=== PATIENT | female | born 1945 | race Caucasian/White ===

== ENCOUNTER 2016-10-24 22:28 | Inpatient (IN) | payer MEDICARE, MEDICAID ==
--- NOTE | 2016-10-24 22:35 | EDM.PDOC ---
ED HPI GENERAL MEDICAL PROBLEM - General Chief Complaint: Genitourinary Problem Stated Complaint: [facility] Time Seen by Provider: 10/24/16 22:34 - History of Present Illness INITIAL COMMENTS - FREE TEXT/NARRATIVE: 71-year-old female presents emergency room with urinary frequency. Patient denies any significant pain however she has urinary frequency. This is started about for 5 hours prior to arrival. Patient denies any fevers or chills no nausea or vomiting. The patient is been doing okay not have any chest pain or chest pressure she has a history of paroxysmal atrial fibrillation. Patient has not had any recent medication changes. She is on oxygen 4 L per nasal cannula for her COPD she has a chronic cough this is not changed. - Related Data Allergies Allergy/AdvReac Type Severity Reaction Status Date / Time enoxaparin [Enoxaparin] Allergy Severe Hives Verified 10/24/16 22:41 silver sulfadiazine Allergy Severe Rash Verified 10/24/16 22:41 [From Silvadene] levothyroxine sodium Allergy Unknown Cannot Verified 10/24/16 22:41 Remember latex Allergy Rash Verified 10/24/16 22:41 levofloxacin [From Levaquin] Allergy Cannot Verified 10/24/16 22:41 Remember Home Meds: Home Meds Acetaminophen [Tylenol] 650 mg PO Q6H PRN 06/26/13 [History] Albuterol/Ipratropium [DuoNeb 3.0-0.5 MG/3 ML] 1 unit INH Q4HR PRN 06/26/13 [ History] Aspirin [Adult Low Dose Aspirin EC] 81 mg PO ASDIRECTED 06/26/13 [History] Budesonide/Formoterol [Symbicort 160-4.5 MCG] 2 puff IH BID 06/26/13 [History] Docusate Sodium [Colace] 200 mg PO BID 06/26/13 [History] Furosemide [Lasix] 40 mg PO BID 06/26/13 [History] Insulin Glarg,Human.Rec.Analog [Lantus] 12 unit SUBCUT BEDTIME 06/26/13 [History ] Levothyroxine Sodium [Synthroid] 25 mcg PO DAILY 06/26/13 [History] Lisinopril [Zestril] 10 mg PO DAILY 06/26/13 [History] Montelukast [Singulair] 10 mg PO BEDTIME 06/26/13 [History] Multivitamin [Multivitamins] 1 each PO DAILY 06/26/13 [History] Polyethylene Glycol 3350 [MiraLAX] 17 gr PO DAILY PRN 06/26/13 [History] Potassium Chloride 10 meq PO DAILY 06/26/13 [History] Simvastatin [Zocor] 20 mg PO BEDTIME 06/26/13 [History] SitaGLIPtin [Januvia] 100 mg PO DAILY 06/26/13 [History] Tiotropium [Spiriva Handihaler] 2 puff INH DAILY 06/26/13 [History] metFORMIN [Glucophage] 250 mg PO BIDM 06/26/13 [History] [place]-3/DHA/Epa/Fish Oil [[place]-3 Fish Oil 1,000 MG Sfgl] 1,000 mg PO BID #30 [Rx] Roflumilast [Daliresp] 250 mcg PO ASDIRECTED #30 07/03/13 [Rx] oxyCODONE HCl/Acetaminophen [Percocet 10-325 MG] 1 tab PO Q6H PRN #30 07/03/13 [ Rx] Carvedilol [Coreg] 6.25 mg PO BID #2 tablet 08/19/13 [Rx] guaiFENesin [Mucinex] 600 mg PO DAILY 10/24/16 [History] Past Medical History HEENT History: Reports: Impaired Vision Cardiovascular History: Reports: Other (See Below) Other Cardiovascular History: "abnormal EKG" patient is unsure of actual diagnosis. Respiratory History: Reports: COPD, Other (See Below) Other Respiratory History: at home Oxygen Endocrine/Metabolic History: Reports: Diabetes, Type II, Hypothyroidism Social & Family History - Family History Cardiac: Reports: Heart Failure Respiratory: Reports: Other (See Below) Other Respiratory Family Hisory: emphysema - Tobacco Use Smoking Status *Q: Former Smoker Years of Tobacco use: 30 Packs/Tins Daily: 1 Used Tobacco, but Quit: Yes Month Tobacco Last Used: 2008 Second Hand Smoke Exposure: No - Alcohol Use Days Per Week of Alcohol Use: 0 - Recreational Drug Use Recreational Drug Use: No ED ROS GENERAL - Review of Systems Review Of Systems: See Below Constitutional: Reports: No Symptoms HEENT: Reports: No Symptoms Respiratory: Reports: Shortness of Breath, Cough, Sputum, Other (She has a chronic productive cough this is unchanged) Cardiovascular: Denies: Chest Pain, Edema GI/Abdominal: Reports: No Symptoms : Reports: Frequency, Urgency Musculoskeletal: Reports: Other (She has multiple orthopedic pain issues) Skin: Reports: No Symptoms Neurological: Reports: No Symptoms Psychiatric: Reports: No Symptoms ED EXAM, RENAL/ - Physical Exam Exam: See Below Exam Limited By: No Limitations General Appearance: Alert, No Apparent Distress Head: Atraumatic, Normocephalic Neck: Normal Inspection, Supple, Non-Tender, Full Range of Motion. No: Lymphadenopathy (L), Lymphadenopathy (R) Respiratory/Chest: No Respiratory Distress, Lungs Clear, Decreased Breath Sounds Cardiovascular: Regular Rate, Rhythm, No Murmur, Other (Scant pitting edema noted) GI/Abdominal: Normal Bowel Sounds, Soft, Non-Tender Back Exam: Normal Inspection. No: CVA Tenderness (L), CVA Tenderness (R) Extremities: Normal Inspection, Other (Scant pitting edema) Neurological: Alert, Oriented, Normal Cognition, No Motor/Sensory Deficits Psychiatric: Normal Affect, Normal Mood Course - Vital Signs Last Recorded V/S: Last Vital Signs Temp 36.8 C 10/24/16 22:32 Pulse 117 H 10/24/16 22:32 Resp 20 10/24/16 22:32 BP 148/58 H 10/24/16 22:32 Pulse Ox 90 L 10/24/16 22:32 - Orders/Labs/Meds Orders: Active Orders 24 hr Category Date Time Status EKG Documentation Completion [RC] STAT Care 10/25/16 01:58 Active CBC WITH MANUAL DIFF [HEME] Stat Lab 10/24/16 22:44 Ordered COMPREHENSIVE METABOLIC PN,CMP [CHEM] Stat Lab 10/24/16 22:44 Ordered CULTURE URINE [RM] Stat Lab 10/25/16 00:44 Received URINALYSIS W/MICROSCOPIC [UA W/MICROSCOPIC] [URIN] Stat Lab 10/24/16 22:44 Uncollected Labs: Laboratory Tests 10/24/16 10/24/16 10/24/16 Range/Units 23:30 23:34 23:34 WBC 16.89 H (3.98-10.04) K/mm3 RBC 3.76 L (3.98-5.22) M/mm3 Hgb 11.5 (11.2-15.7) gm/L Hct 36.3 (34.1-44.9) % MCV 96.5 H (79.4-94.8) fl MCH 30.6 (25.6-32.2) pg MCHC 31.7 L (32.2-35.5) g/dl RDW Std Deviation 49.1 H (36.4-46.3) fL Plt Count 284 (182-369) K/mm3 MPV 10.2 (9.4-12.3) fl Neutrophils % (Manual) 81 H (40-60) % Band Neutrophils % 0 (0-10) % Lymphocytes % (Manual) 13 L (20-40) % Atypical Lymphs % 0 % Monocytes % (Manual) 5 (2-10) % Eosinophils % (Manual) 1 (0.7-5.8) % Basophils % (Manual) 0 L (0.1-1.2) Platelet Estimate Adequate Plt Morphology Comment Normal Microcytosis 1+ slight RBC Morph Comment Not Reportable Sodium 140 (136-145) mEq/L Potassium 4.8 (3.5-5.1) mEq/L Chloride 100 (98-107) mEq/L Carbon Dioxide 31 (21-32) mEq/L Anion Gap 13.8 (5-15) BUN 78 H (7-18) mg/dL Creatinine 2.0 H (0.55-1.02) mg/dL Est Cr Clr Drug Dosing 24.15 mL/min Estimated GFR (MDRD) 25 (>60) mL/min BUN/Creatinine Ratio 39.0 H (14-18) Glucose 116 H (83-115) mg/dL Calcium 10.5 H (8.5-10.1) mg/dL Total Bilirubin 0.5 (0.2-1.0) mg/dL AST 11 L (15-37) U/L ALT 12 L (14-59) U/L Alkaline Phosphatase 117 H (46-116) U/L Total Protein 9.2 H (6.4-8.2) g/dl Albumin 4.0 (3.4-5.0) g/dl Globulin 5.2 gm/dL Albumin/Globulin Ratio 0.8 L (1-2) Urine Color [place] H (Yellow) Urine Appearance Slt cloudy H (Clear) Urine pH 7.0 (5.0-8.0) Ur Specific [place] 1.015 (1.005-1.030) Urine Protein 2+ H (Negative) Urine Glucose (UA) Negative (Negative) Urine Ketones Negative (Negative) Urine Occult Blood 3+ H (Negative) Urine Nitrite Negative (Negative) Urine Bilirubin Negative (Negative) Urine Urobilinogen 0.2 (0.2-1.0) Ur Leukocyte Esterase 3+ H (Negative) Urine RBC >100 H (0-5) /hpf Urine WBC 75-100 H (0-5) /hpf Urine WBC Clumps Few (NOT SEEN) /hpf Ur Epithelial Cells 0-5 (0-5) /hpf Urine Bacteria Few (FEW) /hpf Urine Mucus Not seen (FEW) /hpf Meds: Medications Discontinued Medications Generic Name Dose Route Start Last Admin Trade Name Freq PRN Reason Stop Dose Admin Sodium Chloride 500 mls @ 999 mls/hr 10/25/16 00:23 10/25/16 00:41 Normal Saline IV 10/25/16 00:53 999 mls/hr .BOLUS ONE Administration - Re-Assessments/Exams Free Text/Narrative Re-Assessment/Exam: 10/25/16 02:34 Patient was evaluated in reviewing her creatinine is now 2.0 her BUNs 74 these are markedly elevated over the last couple years. A half ago her creatinine was 0.8 urinalysis has a fair amount of hematuria and it and it is somewhat suggestive of infectious process cultures obtained patient started on Rocephin. The patient has had a tachycardia however she has a history of intermittent atrial fibrillation EKG shows normal sinus rhythm however at times her pulse goes up to 120s. The patient is on lisinopril metformin and Lasix these will be held. Patient will be started on gentle fluid rehydration. Patient will be admitted for further treatment as her insulin requirements will probably change her blood pressure management may need to be adjusted. The patient lives by herself. Departure - Departure Time of Disposition: 02:00 Disposition: Admitted As Inpatient 66 Clinical Impression: Renal insufficiency, Dehydration, Tachycardia - Discharge Information Forms: ED Department Discharge - My Orders Last 24 Hours: My Active Orders 10/24/16 22:44 CBC WITH MANUAL DIFF [HEME] Stat COMPREHENSIVE METABOLIC PN,CMP [CHEM] Stat URINALYSIS W/MICROSCOPIC [UA W/MICROSCOPIC] [URIN] Stat 10/25/16 00:44 CULTURE URINE [RM] Stat 10/25/16 01:58 EKG Documentation Completion [RC] STAT - Assessment/Plan Last 24 Hours: My Active Orders 10/24/16 22:44 CBC WITH MANUAL DIFF [HEME] Stat COMPREHENSIVE METABOLIC PN,CMP [CHEM] Stat URINALYSIS W/MICROSCOPIC [UA W/MICROSCOPIC] [URIN] Stat 10/25/16 00:44 CULTURE URINE [RM] Stat 10/25/16 01:58 EKG Documentation Completion [RC] STAT
[2016-10-25] MEDS ORDERED: Sodium Chloride 0.9% 500 ML IV ONE (00:23)
[2016-10-25] MEDS ORDERED: cefTRIAXone 1 GM in Sodium Chloride 0.9% 100 ML IV ONE (02:19)
[2016-10-25] MEDS ORDERED: Albuterol/Ipratropium 3.0-0.5 MG/3 ML Neb Soln NEB PRN (03:53)
[2016-10-25] MEDS ORDERED: Albuterol 6.7 GM Inhaler INH PRN (03:54)
[2016-10-25] MEDS ORDERED: Insulin Aspart 100 Units/ML 3 ML Pen SUBCUT SCH (07:00)
[2016-10-25] MEDS ORDERED: Acetaminophen 325 MG Tab PO PRN ×2 (07:32→07:37)
[2016-10-25] MEDS ORDERED: LORazepam 2 MG/ML MDV IV PRN (07:32)
[2016-10-25] MEDS ORDERED: Acetaminophen/HYDROcodone 325-5 MG Tab PO PRN (07:32)
[2016-10-25] MEDS ORDERED: Promethazine 12.5 MG in Sodium Chloride 0.9% 50 ML IV PRN (07:32)
[2016-10-25] MEDS ORDERED: Ondansetron 4 MG/2 ML SDV IV PRN (07:32)
[2016-10-25] MEDS ORDERED: Morphine 2 MG/ML Syringe IVPUSH PRN (07:32)
[2016-10-25] MEDS ORDERED: Polyethylene Glycol 3350 Powder 17 GM Packet PO PRN ×2 (07:32→07:37)
[2016-10-25] MEDS ORDERED: Docusate Sodium 100 MG Cap PO PRN (07:32)
[2016-10-25] MEDS ORDERED: Bisacodyl 5 MG Tab PO PRN (07:32)
[2016-10-25] MEDS ORDERED: Acetaminophen/oxyCODONE 325-5 MG Tab PO PRN (07:37)
[2016-10-25] MEDS ORDERED: hydrALAZINE 20 MG/ML SDV IVPUSH PRN (07:42)
[2016-10-25] MEDS ORDERED: Metoprolol Tartrate 5 MG/5 ML SDV IVPUSH PRN (07:42)
[2016-10-25] MEDS ORDERED: 50% Dextrose in Water 50 ML Syringe IVPUSH PRN (07:45)
[2016-10-25] MEDS: Sodium Chloride 0.9% 1,000 ML IV SCH ×2 (07:51→18:06)
[2016-10-25] MEDS ORDERED: Levothyroxine 25 MCG Tab PO SCH (08:15)
[2016-10-25] MEDS: Insulin Aspart 100 Units/ML 3 ML Pen SUBCUT SCH ×2 (08:36→20:54)
[2016-10-25] MEDS ORDERED: oxyCODONE 5 MG Tab PO PRN (08:39)
[2016-10-25] MEDS ORDERED: Furosemide 40 MG Tab PO SCH (08:45)
[2016-10-25] MEDS: Tiotropium Inhaler 18 MCG Inhalation Powder Cap Kit of 5 INH SCH (08:45)
--- NOTE | 2016-10-25 08:53 | PCM.HP ---
<Dena Martinez - Last Filed: 10/25/16 09:12> H&P History of Present Illness - General Date of Service: 10/25/16 Admit Problem/Dx: Admission Diagnosis/Problem Admission Diagnosis/Problem Renal failure Urinary tract infection Source of Information: Patient History Limitations: Reports: No Limitations - History of Present Illness Onset of Symptoms: Reports: Sudden Symptom Onset Date: 10/24/16 Associated Symptoms: Reports: No Other Symptoms - Related Data Allergies/Adverse Reactions: Allergies Allergy/AdvReac Type Severity Reaction Status Date / Time enoxaparin [Enoxaparin] Allergy Mild Hives Verified 10/25/16 07:22 silver sulfadiazine Allergy Mild Rash Verified 10/25/16 07:22 [From Silvadene] levothyroxine sodium Allergy Unknown Cannot Verified 10/24/16 22:41 Remember latex Allergy Rash Verified 10/24/16 22:41 levofloxacin [From Levaquin] Allergy Cannot Verified 10/24/16 22:41 Remember Home Medications: Home Meds Acetaminophen [Tylenol] 650 mg PO Q6H PRN 06/26/13 [History] Albuterol/Ipratropium [DuoNeb 3.0-0.5 MG/3 ML] 1 unit INH Q4HR PRN 06/26/13 [ History] Aspirin [Adult Low Dose Aspirin EC] 81 mg PO ASDIRECTED 06/26/13 [History] Budesonide/Formoterol [Symbicort 160-4.5 MCG] 2 puff IH BID 06/26/13 [History] Docusate Sodium [Colace] 200 mg PO BID 06/26/13 [History] Furosemide [Lasix] 40 mg PO BID 06/26/13 [History] Insulin Glarg,Human.Rec.Analog [Lantus] 12 unit SUBCUT BEDTIME 06/26/13 [History ] Levothyroxine Sodium [Synthroid] 25 mcg PO DAILY 06/26/13 [History] Lisinopril [Zestril] 10 mg PO DAILY 06/26/13 [History] Montelukast [Singulair] 10 mg PO BEDTIME 06/26/13 [History] Multivitamin [Multivitamins] 1 each PO DAILY 06/26/13 [History] Polyethylene Glycol 3350 [MiraLAX] 17 gr PO DAILY PRN 06/26/13 [History] Potassium Chloride 10 meq PO DAILY 06/26/13 [History] Simvastatin [Zocor] 20 mg PO BEDTIME 06/26/13 [History] SitaGLIPtin [Januvia] 100 mg PO DAILY 06/26/13 [History] Tiotropium [Spiriva Handihaler] 2 puff INH DAILY 06/26/13 [History] metFORMIN [Glucophage] 250 mg PO BIDM 06/26/13 [History] [place]-3/DHA/Epa/Fish Oil [[place]-3 Fish Oil 1,000 MG Sfgl] 1,000 mg PO BID #30 [Rx] Roflumilast [Daliresp] 250 mcg PO ASDIRECTED #30 07/03/13 [Rx] oxyCODONE HCl/Acetaminophen [Percocet 10-325 MG] 1 tab PO Q6H PRN #30 07/03/13 [ Rx] Carvedilol [Coreg] 6.25 mg PO BID #2 tablet 08/19/13 [Rx] guaiFENesin [Mucinex] 600 mg PO DAILY 10/24/16 [History] Albuterol [IJD: Ventolin HFA] 2 puff INH .TWICE DAILY 10/25/16 [History] Levothyroxine Sodium [Synthroid] 25 mcg PO DAILY 10/25/16 [History] Past Medical History HEENT History: Reports: Impaired Vision Cardiovascular History: Reports: Other (See Below) Other Cardiovascular History: "abnormal EKG" patient is unsure of actual diagnosis. Respiratory History: Reports: COPD, Other (See Below) Other Respiratory History: at home Oxygen : 3 Para: 3 Endocrine/Metabolic History: Reports: Diabetes, Type II, Hypothyroidism - Past Surgical History Female Surgical History: Reports: Tubal Ligation (1965) Social & Family History - Family History Cardiac: Reports: Heart Failure Respiratory: Reports: Other (See Below) Other Respiratory Family Hisory: emphysema Endocrine/Metabolic: Reports: Diabetes, type II - Tobacco Use Smoking Status *Q: Former Smoker Years of Tobacco use: 30 Packs/Tins Daily: 1 Used Tobacco, but Quit: Yes Month Tobacco Last Used: 2008 Second Hand Smoke Exposure: No - Caffeine Use Caffeine Use: Reports: Coffee - Alcohol Use Days Per Week of Alcohol Use: 0 - Recreational Drug Use Recreational Drug Use: No H&P Review of Systems - Review of Systems: General: Reports: No Symptoms HEENT: Reports: No Symptoms Pulmonary: Reports: Cough, Sputum Cardiovascular: Reports: No Symptoms Gastrointestinal: Reports: No Symptoms Genitourinary: Reports: Frequency, Urgency Musculoskeletal: Reports: No Symptoms Neurological: Reports: No Symptoms Hematologic/Lymphatic: Reports: Easy Bruising Exam - Vital Signs Vital Signs: Last Vital Signs Temp 97.0 F 10/25/16 07:28 Pulse 91 10/25/16 07:28 Resp 20 10/25/16 07:27 BP 124/47 L 10/25/16 07:27 Pulse Ox 91 L 10/25/16 07:33 Weight: 72.575 kg - Exam Quality Assessment: Supplemental Oxygen General: Alert, Oriented, Cooperative HEENT: Conjunctiva Clear, EOMI, Hearing Intact, Pupils Equal, Pupils Reactive Neck: Supple, Trachea Midline Lungs: Decreased Breath Sounds (COPD related) Cardiovascular: Other (Inadequate assessment) GI/Abdominal Exam: Soft, Non-Tender, No Organomegaly, No Distention (Female) Exam: Deferred Rectal (Female) Exam: Deferred Back Exam: Normal Inspection, Full Range of Motion Extremities: Normal Inspection, Normal Range of Motion, Non-Tender, No Pedal Edema Skin: Warm, Dry, Intact Neurological: Cranial Nerves Intact Neuro Extensive - Mental Status: Alert, Oriented x3, Normal Mood/Affect, Normal Cognition, Memory Intact Neuro Extensive - Motor, Sensory, Reflexes: CN II-XII Intact Psychiatric: Alert, Normal Affect, Normal Mood - Patient Data Lab Results Last 24 hrs: Laboratory Results - last 24 hr 10/25/16 10/25/16 Range/Units 06:10 07:38 Sodium 140 (136-145) mEq/L Potassium 4.4 (3.5-5.1) mEq/L Chloride 102 (98-107) mEq/L Carbon Dioxide 29 (21-32) mEq/L Anion Gap 13.4 (5-15) BUN 68 H (7-18) mg/dL Creatinine 1.6 H (0.55-1.02) mg/dL Est Cr Clr Drug Dosing 30.19 mL/min Estimated GFR (MDRD) 32 (>60) mL/min BUN/Creatinine Ratio 42.5 H (14-18) Glucose 125 H (83-115) mg/dL POC Glucose 119 H (83-110) mg/dL Calcium 9.2 (8.5-10.1) mg/dL Result Diagrams: 10/24/16 23:34 10/25/16 06:10 *Q Meaningful Use (ADM) - VTE *Q VTE Criteria *Q: - Stroke *Q Stroke Criteria *Q: - AMI *Q AMI Criteria *Q: - Problem List (1) Dehydration SNOMED Code(s): 62595532 ICD Code: E86.0 - DEHYDRATION Status: Acute Current Visit: Yes (2) Renal insufficiency SNOMED Code(s): 721561131 ICD Code: N28.9 - DISORDER OF KIDNEY AND URETER, UNSPECIFIED Status: Acute Current Visit: Yes Problem List Initiated/Reviewed/Updated: Yes Orders Last 24hrs: Active Orders 24 hr Category Date Time Status Patient Status [ADT] Stat ADT 10/25/16 02:38 Active Accu Check [Blood Glucose Check, Bedside] [RC] Care 10/25/16 07:00 Active QIDACANDBED Antiembolic Devices [RC] PER UNIT ROUTINE Care 10/25/16 07:34 Active Blood Glucose Check, Bedside [RC] ASDIRECTED Care 10/25/16 07:45 Active Communication Order [RC] ROUTINE Care 10/25/16 03:49 Active Height and Weight [RC] DAILY Care 10/25/16 07:32 Active Intake and Output [RC] QSHIFT Care 10/25/16 07:33 Active Oxygen Therapy Adult [Oxygen Therapy] [RC] ASDIRECTED Care 10/25/16 03:47 Active Oxygen Therapy [RC] PRN Care 10/25/16 07:33 Active Pulse Oximetry [RC] CONTINUOUS Care 10/25/16 07:33 Active RT Aerosol Therapy [RC] ASDIRECTED Care 10/25/16 03:54 Active RT Post Treatment Assessment [RC] Click to Edit Care 10/25/16 03:56 Active RT Pre-Treatment Assessment [RC] Click to Edit Care 10/25/16 03:57 Active Up With Assistance [RC] ASDIRECTED Care 10/25/16 07:32 Active Up ad Mary Ann [RC] ASDIRECTED Care 10/25/16 03:43 Active Up to Chair [RC] ASDIRECTED Care 10/25/16 07:32 Active VTE/DVT Education [RC] PER UNIT ROUTINE Care 10/25/16 07:33 Active Vital Signs [RC] Q4H Care 10/25/16 07:33 Active Consult to Case Management [CONS] Routine Cons 10/25/16 07:35 Active Consult to Machine Former [CONS] Routine Cons 10/25/16 07:35 Active Consult to Spiritual Care [CONS] Routine Cons 10/25/16 07:35 Active OT Evaluation and Treatment [CONS] Routine Cons 10/25/16 07:35 Active PT Evaluation and Treatment [CONS] Routine Cons 10/25/16 07:35 Active Respiratory Care Assess and Treatment [CONS] Routine Cons 10/25/16 07:35 Active ADA Diabetic [[place] [employer] Diet] [DIET Diet 10/25/16 Breakfast Active ] ADA Diabetic [[place] [employer] Diet] [DIET Diet 10/25/16 Breakfast Active ] CBC WITH AUTO DIFF [HEME] AM Lab 10/26/16 05:11 Ordered CBC WITH AUTO DIFF [HEME] AM Lab 10/27/16 05:11 Ordered CBC WITH AUTO DIFF [HEME] AM Lab 10/28/16 05:11 Ordered CBC WITH AUTO DIFF [HEME] AM Lab 10/29/16 05:11 Ordered CBC WITH AUTO DIFF [HEME] AM Lab 10/30/16 05:11 Ordered MAGNESIUM [CHEM] AM Lab 10/26/16 05:11 Ordered MAGNESIUM [CHEM] AM Lab 10/27/16 05:11 Ordered MAGNESIUM [CHEM] AM Lab 10/28/16 05:11 Ordered MAGNESIUM [CHEM] AM Lab 10/29/16 05:11 Ordered MAGNESIUM [CHEM] AM Lab 10/30/16 05:11 Ordered Acetaminophen [Tylenol] Med 10/25/16 07:32 Active 650 mg PO Q4H PRN Acetaminophen/HYDROcodone [[place] 325-5 MG] Med 10/25/16 07:32 Active 1 tab PO Q4H PRN Acetaminophen/oxyCODONE [Percocet 325-5 MG] Med 10/25/16 07:37 Active 1 tab PO Q6H PRN Albuterol [Proventil HFA] Med 10/25/16 09:00 Active 0 gm INH BID Albuterol [Proventil HFA] Med 10/25/16 03:54 Active 0 gm INH Q4H PRN Albuterol/Ipratropium [DuoNeb 3.0-0.5 MG/3 ML] Med 10/25/16 03:53 Active 3 ml NEB Q4HRRT PRN Aspirin [Halfprin] Med 10/26/16 09:00 Active 81 mg PO Q48H Bisacodyl [Dulcolax] Med 10/25/16 07:32 Active 5 mg PO DAILY PRN Carvedilol [Coreg] Med 10/25/16 09:00 Active 6.25 mg PO BID Dextrose 50% in Water Med 10/25/16 07:45 Active 50 ml IVPUSH ASDIRECTED PRN Docusate Sodium [Colace] Med 10/25/16 07:32 Active 100 mg PO BID PRN Docusate Sodium [Colace] Med 10/25/16 09:00 Active 200 mg PO BID Docusate Sodium/Sennosides [Senna Plus] Med 10/25/16 07:32 Active 1 tab PO BID PRN Fish Oil/[place]-3 Fatty Acids [Fish Oil] Med 10/25/16 09:00 Active 1 gm PO BID Furosemide [Lasix] Med 10/25/16 14:00 Active 20 mg PO DAILY@1400 Furosemide [Lasix] Med 10/25/16 08:45 Active 40 mg PO DAILY@0600 Insulin Aspart [NovoLOG] Med 10/25/16 08:00 Active See Protocol SUBCUT BID@0700,2100 Insulin Detemir [Levemir] Med 10/25/16 21:00 Active 6 unit SUBCUT BID LORazepam [Ativan] Med 10/25/16 07:32 Active 1 mg IV Q6H PRN Levothyroxine Med 10/25/16 08:15 Active 25 mcg PO ACBREAKFAST Lisinopril [Prinivil] Med 10/25/16 09:00 Active 10 mg PO DAILY Magnesium Rep Pharmacy to Dose [Pharmacy to Dose - Med 10/25/16 07:45 Active Magnesium Replacement] 0 dose .XX ASDIRECTED PRN Metoprolol Tartrate [Lopressor] Med 10/25/16 07:42 Active 5 mg IVPUSH Q4H PRN Mometasone/Formoterol [Dulera 200-5 MCG] Med 10/25/16 09:00 Active 2 puff IH BID Montelukast [Singulair] Med 10/25/16 21:00 Active 10 mg PO BEDTIME Morphine Med 10/25/16 07:32 Active 1 mg IVPUSH Q4H PRN Multivitamins,Therapeutic [Thera] Med 10/25/16 09:00 Active 1 each PO DAILY Ondansetron [Zofran] Med 10/25/16 07:32 Active 4 mg IV Q6H PRN Patient's Own Medication [Ptom] Med 10/26/16 09:00 Active 0 each PO Q48H Pneumococcal 13-Valent Conjug [Prevnar 13] Med 10/25/16 11:40 Once 0.5 ml IM .ONCE ONE Polyethylene Glycol 3350 [MiraLAX] Med 10/25/16 07:37 Active 17 gm PO DAILY PRN Potassium Chloride [Klor-Con 10] Med 10/25/16 09:00 Active 10 meq PO DAILY Potassium Rep Pharmacy to Dose [Pharmacy to Dose - Med 10/25/16 07:45 Active Potassium Replacement] 0 dose .XX ASDIRECTED PRN Promethazine [Phenergan] 12.5 mg Med 10/25/16 07:32 Active Sodium Chloride 0.9% [Normal Saline] 50 ml IV Q6H Simvastatin [Zocor] Med 10/25/16 21:00 Active 20 mg PO BEDTIME SitaGLIPtin [Januvia] Med 10/25/16 09:00 Active 100 mg PO DAILY Sodium Chloride 0.9% [Normal Saline] 1,000 ml Med 10/25/16 03:45 Active IV ASDIRECTED Temazepam [Restoril] Med 10/25/16 21:00 Active 7.5 mg PO BEDTIME PRN Tiotropium [Spiriva HandiHaler] Med 10/25/16 09:00 Active 18 mcg INH DAILY cefTRIAXone [Rocephin] 1 gm Med 10/26/16 03:00 Active Sodium Chloride 0.9% [Normal Saline] 100 ml IV Q24H guaiFENesin [Mucinex] Med 10/25/16 09:00 Active 600 mg PO DAILY hydrALAZINE [Apresoline] Med 10/25/16 07:42 Active 20 mg IVPUSH Q4H PRN metFORMIN [Glucophage] Med 10/25/16 17:00 Active 250 mg PO BIDM oxyCODONE Med 10/25/16 08:39 Active 5 mg PO Q6H PRN Sequential Compression Device [OM.PC] Per Unit Routine Oth 10/25/16 07:33 Ordered Code Status [Resuscitation Status] Routine Resus Stat 10/25/16 03:42 Ordered Medication Orders Acetaminophen (Tylenol) 650 mg PO Q4H PRN PRN Reason: Pain (Mild 1-3)/fever Hydrocodone Bitart/Acetaminophen ([place] 325-5 Mg) 1 tab PO Q4H PRN PRN Reason: Pain (moderate 4-6) Albuterol (Proventil Hfa) 0 gm INH Q4H PRN PRN Reason: Shortness of Breath Albuterol (Proventil Hfa) 0 gm INH BID [facility] Albuterol/Ipratropium (Duoneb 3.0-0.5 Mg/3 Ml) 3 ml NEB Q4HRRT PRN PRN Reason: Shortness of Breath Aspirin (Halfprin) 81 mg PO Q48H [facility] Bisacodyl (Dulcolax) 5 mg PO DAILY PRN PRN Reason: Constipation Carvedilol (Coreg) 6.25 mg PO BID [facility] Dextrose/Water (Dextrose 50% In Water) 50 ml IVPUSH ASDIRECTED PRN PRN Reason: Hypoglycemia Docusate Sodium (Colace) 100 mg PO BID PRN PRN Reason: Constipation Docusate Sodium (Colace) 200 mg PO BID [facility] Fish Oil (Fish Oil) 1 gm PO BID [facility] Furosemide (Lasix) 40 mg PO DAILY@0600 [facility] Furosemide (Lasix) 20 mg PO DAILY@1400 [facility] Guaifenesin (Mucinex) 600 mg PO DAILY [facility] Hydralazine HCl (Apresoline) 20 mg IVPUSH Q4H PRN PRN Reason: Hypertension Sodium Chloride (Normal Saline) 1,000 mls @ 100 mls/hr IV ASDIRECTED [facility] Last Admin: 10/25/16 07:51 Dose: 100 mls/hr Promethazine HCl 12.5 mg/ (Sodium Chloride) 50.5 mls @ 100 mls/hr IV Q6H PRN PRN Reason: Nausea/Vomiting Ceftriaxone Sodium 1 gm/ (Sodium Chloride) 100 mls @ 200 mls/hr IV Q24H [facility] Insulin Aspart (Novolog) 0 unit SUBCUT BID@0700,2100 [facility] PRN Reason: Protocol Last Admin: 10/25/16 08:36 Dose: Not Given Insulin Detemir (Levemir) 6 unit SUBCUT BID [facility] Levothyroxine Sodium (Levothyroxine) 25 mcg PO ACBREAKFAST [facility] Lisinopril (Prinivil) 10 mg PO DAILY [facility] Lorazepam (Ativan) 1 mg IV Q6H PRN PRN Reason: Anxiety Magnesium Sulfate (Pharmacy To Dose - Magnesium Replacement) 0 dose .XX ASDIRECTED PRN PRN Reason: RX TO WATCH MAG LEVELS Metformin HCl (Glucophage) 250 mg PO BIDM [facility] Metoprolol Tartrate (Lopressor) 5 mg IVPUSH Q4H PRN PRN Reason: Tachycardia Mometasone Furoate/Formoterol Fumar (Dulera 200-5 Mcg) 2 puff IH BID [facility] Montelukast Sodium (Singulair) 10 mg PO BEDTIME [facility] Morphine Sulfate (Morphine) 1 mg IVPUSH Q4H PRN PRN Reason: Pain (severe 7-10) Stop: 10/26/16 07:33 Multivitamins (Thera) 1 each PO DAILY [facility] Ondansetron HCl (Zofran) 4 mg IV Q6H PRN PRN Reason: Nausea/Vomiting Oxycodone HCl (Oxycodone) 5 mg PO Q6H PRN PRN Reason: PAIN Oxycodone/Acetaminophen (Percocet 325-5 Mg) 1 tab PO Q6H PRN PRN Reason: Pain Roflumilast 250 Mcg 0 each PO Q48H [facility] Pneumococcal 13-Valent Conj Vacc (Prevnar 13) 0.5 ml IM .ONCE ONE Stop: 10/25/16 11:41 Polyethylene Glycol (Miralax) 17 gm PO DAILY PRN PRN Reason: Constipation Potassium Chloride (Klor-Con 10) 10 meq PO DAILY [facility] Potassium Chloride (Pharmacy To Dose - Potassium Replacement) 0 dose .XX ASDIRECTED PRN PRN Reason: RX TO WATCH K LEVELS Senna/Docusate Sodium (Senna Plus) 1 tab PO BID PRN PRN Reason: Constipation Simvastatin (Zocor) 20 mg PO BEDTIME [facility] Sitagliptin Phosphate (Januvia) 100 mg PO DAILY [facility] Temazepam (Restoril) 7.5 mg PO BEDTIME PRN PRN Reason: Sleep Tiotropium [place] (Spiriva Handihaler) 18 mcg INH DAILY [facility] Assessment/Plan Comment:: Assessment: Patient is a 71 yo female that presented to ER last night, 10/24/16, with urinary difficulties. The patient reports that she had increased urgency and frequency, but was unable to void completely. Patient does not report any CVA tenderness, fever, chills or pain with urination. The patient has a history of COPD, diabetes, chronic kidney disease and hypothyroid. Labs revealed a possible urinary tract infection. Ceftriaxone was started this morning at 0219. On physical examination the patient reports no acute distress and reports that her symptoms have resolved and she is back to her baseline. Acute illnesses: UTI Chronic illnesses: COPD Chronic kidney disease Diabetes Hypothyroid Plan: Maintain supplemental oxygen Culture urine to isolate source of infection Adjust antibiotic treatment if needed Monitor blood sugars during stay Monitor kidneys and possibly adjust medications Maintain treatment of chronic illnesses <Laura Jackson - Last Filed: 10/25/16 18:06> H&P History of Present Illness - General Admit Problem/Dx: Admission Diagnosis/Problem Admission Diagnosis/Problem Renal failure Source of Information: Patient, Old Records, Provider, RN Notes Reviewed History Limitations: Reports: No Limitations - History of Present Illness Initial Comments - Free Text/Narative: This is a 71-year-old elderly white female with past medical history of impaired vision, history of paroxysmal atrial fibrillation, Advanced COPD, chronic respiratory failure on 4 L nasal cannula, hypothyroidism, and type 2 diabetes, who presents to the emergency department with complaints. She complains of urinary urgency and frequency that started about 5:00 PM yesterday evening. She denies any urinary or burning sensation. She denies any systemic symptoms. Patient denies any history of complaints. No history of urinary incontinence or overactive bladder. She had 3 children--all vaginal in delivery. Her initial workup in the emergency department shows a CBC remarkable for WBC of 16.89, RBC of 3.76, MCV of 96.5, neutrophils of 81% and lymphocytes of 13%. Her chemistry is remarkable for BUN of 78, creatinine of 2, glucose of 116, calcium of 10.5, AST of 11, ALT of 12, alkaline phosphatase of 117, and total protein of 9.2. UA is positive for urinary tract infection. Patient's was admitted early this morning for treatment of urinary tract infection and possible overactive bladder. She is full code. H&P Review of Systems - Review of Systems: Review Of Systems: See Below General: Denies: Fever, Chills, Malaise, Weakness, Fatigue, Night Sweats, Diaphoresis HEENT: Reports: No Symptoms Pulmonary: Reports: Shortness of Breath, Cough, Sputum Cardiovascular: Denies: Chest Pain, Palpitations Gastrointestinal: Denies: Abdominal Pain, Nausea, Vomiting Genitourinary: Reports: Frequency, Urgency Musculoskeletal: Reports: Joint Pain Skin: Denies: Cyanosis, Bruising, Pruritis, Erythema Psychiatric: Denies: Confusion, Depression, Anxiety, Suicidal Ideation, Homicidal Ideation, Hallucinations (Auditory) Neurological: Denies: Confusion, Weakness, Gait Disturbance Hematologic/Lymphatic: Reports: No Symptoms Immunologic: Reports: No Symptoms Exam - Exam Exam: See Below - Vital Signs Vital Signs: Last Vital Signs Temp 36.6 C 10/25/16 16:13 Pulse 105 H 10/25/16 16:13 Resp 16 10/25/16 16:13 BP 122/63 10/25/16 16:13 Pulse Ox 96 10/25/16 16:13 - Exam Quality Assessment: Supplemental Oxygen General: Alert, Oriented, Cooperative, Mild Distress HEENT: Conjunctiva Clear, EOMI, Hearing Intact, Mucosa Moist & [place], Nares Patent, Normal Nasal Septum, Posterior Pharynx Clear, Pupils Equal, Pupils Reactive Neck: Supple, Trachea Midline, Full Range of Motion. No: JVD Lungs: Normal Respiratory Effort, Decreased Breath Sounds GI/Abdominal Exam: Normal Bowel Sounds, Soft, Non-Tender, No Organomegaly, No Distention, No Abnormal Bruit, No Mass. No: Guarding (Female) Exam: Other (negative for suprapubic tenderness) Rectal (Female) Exam: Deferred Back Exam: Normal Inspection, Decreased Range of Motion. No: CVA Tenderness (L) , CVA Tenderness (R) Extremities: Normal Inspection, Normal Range of Motion, Non-Tender, No Pedal Edema, Normal Capillary Refill Peripheral Pulses: 2+: Posterior Tibial (L), Posterior Tibial (R), Dorsalis Pedis (L), Dorsalis Pedis (R) Skin: Warm, Dry, Intact Neuro Extensive - Mental Status: Oriented x3, Normal Cognition, Memory Intact Neuro Extensive - Motor, Sensory, Reflexes: CN II-XII Intact (grossly intact) Psychiatric: Alert, Normal Affect, Normal Mood - Patient Data Lab Results Last 24 hrs: Laboratory Results - last 24 hr 10/25/16 10/25/16 10/25/16 Range/Units 06:10 07:38 10:51 Sodium 140 (136-145) mEq/L Potassium 4.4 (3.5-5.1) mEq/L Chloride 102 (98-107) mEq/L Carbon Dioxide 29 (21-32) mEq/L Anion Gap 13.4 (5-15) BUN 68 H (7-18) mg/dL Creatinine 1.6 H (0.55-1.02) mg/dL Est Cr Clr Drug Dosing 30.19 mL/min Estimated GFR (MDRD) 32 (>60) mL/min BUN/Creatinine Ratio 42.5 H (14-18) Glucose 125 H (83-115) mg/dL POC Glucose 119 H 153 H (83-110) mg/dL Calcium 9.2 (8.5-10.1) mg/dL 10/25/16 Range/Units 17:05 Sodium (136-145) mEq/L Potassium (3.5-5.1) mEq/L Chloride (98-107) mEq/L Carbon Dioxide (21-32) mEq/L Anion Gap (5-15) BUN (7-18) mg/dL Creatinine (0.55-1.02) mg/dL Est Cr Clr Drug Dosing mL/min Estimated GFR (MDRD) (>60) mL/min BUN/Creatinine Ratio (14-18) Glucose (83-115) mg/dL POC Glucose 120 H (83-110) mg/dL Calcium (8.5-10.1) mg/dL Result Diagrams: 10/24/16 23:34 10/25/16 06:10 *Q Meaningful Use (ADM) - VTE *Q VTE Criteria *Q: - Stroke *Q Stroke Criteria *Q: - AMI *Q AMI Criteria *Q: Problem List Initiated/Reviewed/Updated: Yes Orders Last 24hrs: Active Orders 24 hr Category Date Time Status Patient Status [ADT] Stat ADT 10/25/16 02:38 Active Accu Check [Blood Glucose Check, Bedside] [] Care 10/25/16 07:00 Active QIDACANDBED Antiembolic Devices [RC] DAILY Care 10/25/16 07:34 Active Height and Weight [RC] 04 Care 10/25/16 07:32 Active Intake and Output [RC] 04,16 Care 10/25/16 07:33 Active Oxygen Therapy [RC] PRN Care 10/25/16 07:33 Active Pulse Oximetry [RC] CONTINUOUS Care 10/25/16 07:33 Active RT Aerosol Therapy [RC] ASDIRECTED Care 10/25/16 03:54 Active RT Post Treatment Assessment [RC] Click to Edit Care 10/25/16 03:56 Active RT Pre-Treatment Assessment [RC] Click to Edit Care 10/25/16 03:57 Active Up With Assistance [RC] ASDIRECTED Care 10/25/16 07:32 Active Up ad Mary Ann [RC] ASDIRECTED Care 10/25/16 03:43 Active Up to Chair [RC] ASDIRECTED Care 10/25/16 07:32 Active VTE/DVT Education [RC] DAILY Care 10/25/16 07:33 Active Vital Signs [RC] Q4HR Care 10/25/16 07:33 Active Consult to Case Management [CONS] Routine Cons 10/25/16 07:35 Active Consult to Machine Former [CONS] Routine Cons 10/25/16 07:35 Active Consult to Spiritual Care [CONS] Routine Cons 10/25/16 07:35 Active OT Evaluation and Treatment [CONS] Routine Cons 10/25/16 07:35 Active PT Evaluation and Treatment [CONS] Routine Cons 10/25/16 07:35 Active Respiratory Care Assess and Treatment [CONS] Routine Cons 10/25/16 07:35 Active ADA Diabetic [[place] [employer] Diet] [DIET Diet 10/25/16 Breakfast Active ] ADA Diabetic [[place] [employer] Diet] [DIET Diet 10/25/16 Breakfast Active ] CBC WITH AUTO DIFF [HEME] AM Lab 10/26/16 05:11 Ordered CBC WITH AUTO DIFF [HEME] AM Lab 10/27/16 05:11 Ordered CBC WITH AUTO DIFF [HEME] AM Lab 10/28/16 05:11 Ordered CBC WITH AUTO DIFF [HEME] AM Lab 10/29/16 05:11 Ordered CBC WITH AUTO DIFF [HEME] AM Lab 10/30/16 05:11 Ordered MAGNESIUM [CHEM] AM Lab 10/26/16 05:11 Ordered MAGNESIUM [CHEM] AM Lab 10/27/16 05:11 Ordered MAGNESIUM [CHEM] AM Lab 10/28/16 05:11 Ordered MAGNESIUM [CHEM] AM Lab 10/29/16 05:11 Ordered MAGNESIUM [CHEM] AM Lab 10/30/16 05:11 Ordered Acetaminophen [Tylenol] Med 10/25/16 07:32 Active 650 mg PO Q4H PRN Acetaminophen/HYDROcodone [[place] 325-5 MG] Med 10/25/16 07:32 Active 1 tab PO Q4H PRN Acetaminophen/oxyCODONE [Percocet 325-5 MG] Med 10/25/16 07:37 Active 1 tab PO Q6H PRN Albuterol/Ipratropium [DuoNeb 3.0-0.5 MG/3 ML] Med 10/25/16 03:53 Active 3 ml NEB Q4HRRT PRN Aspirin [Halfprin] Med 10/26/16 09:00 Active 81 mg PO Q48H Bisacodyl [Dulcolax] Med 10/25/16 07:32 Active 5 mg PO DAILY PRN Carvedilol [Coreg] Med 10/25/16 09:00 Active 6.25 mg PO BID Dextrose 50% in Water Med 10/25/16 07:45 Active 50 ml IVPUSH ASDIRECTED PRN Docusate Sodium [Colace] Med 10/25/16 07:32 Active 100 mg PO BID PRN Docusate Sodium [Colace] Med 10/25/16 09:00 Active 200 mg PO BID Docusate Sodium/Sennosides [Senna Plus] Med 10/25/16 07:32 Active 1 tab PO BID PRN Fish Oil/[place]-3 Fatty Acids [Fish Oil] Med 10/25/16 09:00 Active 1 gm PO BID Insulin Aspart [NovoLOG] Med 10/25/16 08:00 Active See Protocol SUBCUT BID@0700,2100 Insulin Detemir [Levemir] Med 10/25/16 21:00 Active 6 unit SUBCUT BID LORazepam [Ativan] Med 10/25/16 07:32 Active 1 mg IV Q6H PRN Lisinopril [Prinivil] Med 10/25/16 09:00 Active 10 mg PO DAILY Magnesium Rep Pharmacy to Dose [Pharmacy to Dose - Med 10/25/16 07:45 Active Magnesium Replacement] 0 dose .XX ASDIRECTED PRN Metoprolol Tartrate [Lopressor] Med 10/25/16 07:42 Active 5 mg IVPUSH Q4H PRN Montelukast [Singulair] Med 10/25/16 21:00 Active 10 mg PO BEDTIME Morphine Med 10/25/16 07:32 Active 1 mg IVPUSH Q4H PRN Multivitamins,Therapeutic [Thera] Med 10/25/16 09:00 Active 1 each PO DAILY Ondansetron [Zofran] Med 10/25/16 07:32 Active 4 mg IV Q6H PRN Patient's Own Medication [Ptom] Med 10/25/16 09:00 Active 0 each INH BID Patient's Own Medication [Ptom] Med 10/25/16 09:05 Active 0 each INH Q4H PRN Patient's Own Medication [Ptom] Med 10/25/16 09:15 Active 0 each PO ACBREAKFAST Patient's Own Medication [Ptom] Med 10/26/16 09:00 Active 0 each PO Q48H Polyethylene Glycol 3350 [MiraLAX] Med 10/25/16 07:37 Active 17 gm PO DAILY PRN Potassium Chloride [Klor-Con 10] Med 10/25/16 09:00 Active 10 meq PO DAILY Potassium Rep Pharmacy to Dose [Pharmacy to Dose - Med 10/25/16 07:45 Active Potassium Replacement] 0 dose .XX ASDIRECTED PRN Promethazine [Phenergan] 12.5 mg Med 10/25/16 07:32 Active Sodium Chloride 0.9% [Normal Saline] 50 ml IV Q6H Simvastatin [Zocor] Med 10/25/16 21:00 Active 20 mg PO BEDTIME SitaGLIPtin [Januvia] Med 10/25/16 09:00 Active 100 mg PO DAILY Sodium Chloride 0.9% [Normal Saline] 1,000 ml Med 10/25/16 03:45 Active IV ASDIRECTED Temazepam [Restoril] Med 10/25/16 21:00 Active 7.5 mg PO BEDTIME PRN Tiotropium [Spiriva HandiHaler] Med 10/25/16 09:00 Active 18 mcg INH DAILY cefTRIAXone [Rocephin] 1 gm Med 10/26/16 03:00 Active Sodium Chloride 0.9% [Normal Saline] 100 ml IV Q24H guaiFENesin [Mucinex] Med 10/25/16 09:00 Active 600 mg PO DAILY hydrALAZINE [Apresoline] Med 10/25/16 07:42 Active 20 mg IVPUSH Q4H PRN metFORMIN [Glucophage] Med 10/25/16 17:00 Active 250 mg PO BIDM oxyCODONE Med 10/25/16 08:39 Active 5 mg PO Q6H PRN Sequential Compression Device [OM.PC] Per Unit Routine Oth 10/25/16 07:33 Ordered Code Status [Resuscitation Status] Routine Resus Stat 10/25/16 03:42 Ordered Medication Orders Acetaminophen (Tylenol) 650 mg PO Q4H PRN PRN Reason: Pain (Mild 1-3)/fever Hydrocodone Bitart/Acetaminophen ([place] 325-5 Mg) 1 tab PO Q4H PRN PRN Reason: Pain (moderate 4-6) Albuterol/Ipratropium (Duoneb 3.0-0.5 Mg/3 Ml) 3 ml NEB Q4HRRT PRN PRN Reason: Shortness of Breath Aspirin (Halfprin) 81 mg PO Q48H [facility] Bisacodyl (Dulcolax) 5 mg PO DAILY PRN PRN Reason: Constipation Carvedilol (Coreg) 6.25 mg PO BID [facility] Last Admin: 10/25/16 09:01 Dose: 6.25 mg Dextrose/Water (Dextrose 50% In Water) 50 ml IVPUSH ASDIRECTED PRN PRN Reason: Hypoglycemia Docusate Sodium (Colace) 100 mg PO BID PRN PRN Reason: Constipation Docusate Sodium (Colace) 200 mg PO BID [facility] Last Admin: 10/25/16 09:08 Dose: 200 mg Fish Oil (Fish Oil) 1 gm PO BID [facility] Last Admin: 10/25/16 09:07 Dose: 1 gm Guaifenesin (Mucinex) 600 mg PO DAILY [facility] Last Admin: 10/25/16 09:08 Dose: 600 mg Hydralazine HCl (Apresoline) 20 mg IVPUSH Q4H PRN PRN Reason: Hypertension Sodium Chloride (Normal Saline) 1,000 mls @ 100 mls/hr IV ASDIRECTED [facility] Last Admin: 10/25/16 07:51 Dose: 100 mls/hr Promethazine HCl 12.5 mg/ (Sodium Chloride) 50.5 mls @ 100 mls/hr IV Q6H PRN PRN Reason: Nausea/Vomiting Ceftriaxone Sodium 1 gm/ (Sodium Chloride) 100 mls @ 200 mls/hr IV Q24H [facility] Insulin Aspart (Novolog) 0 unit SUBCUT BID@0700,2100 [facility] PRN Reason: Protocol Last Admin: 10/25/16 08:36 Dose: Not Given Insulin Detemir (Levemir) 6 unit SUBCUT BID [facility] Lisinopril (Prinivil) 10 mg PO DAILY [facility] Last Admin: 10/25/16 09:07 Dose: 10 mg Lorazepam (Ativan) 1 mg IV Q6H PRN PRN Reason: Anxiety Magnesium Sulfate (Pharmacy To Dose - Magnesium Replacement) 0 dose .XX ASDIRECTED PRN PRN Reason: RX TO WATCH MAG LEVELS Metformin HCl (Glucophage) 250 mg PO BIDM [facility] Last Admin: 10/25/16 17:07 Dose: 250 mg Metoprolol Tartrate (Lopressor) 5 mg IVPUSH Q4H PRN PRN Reason: Tachycardia Montelukast Sodium (Singulair) 10 mg PO BEDTIME [facility] Morphine Sulfate (Morphine) 1 mg IVPUSH Q4H PRN PRN Reason: Pain (severe 7-10) Stop: 10/26/16 07:33 Multivitamins (Thera) 1 each PO DAILY [facility] Last Admin: 10/25/16 09:01 Dose: 1 each Ondansetron HCl (Zofran) 4 mg IV Q6H PRN PRN Reason: Nausea/Vomiting Oxycodone HCl (Oxycodone) 5 mg PO Q6H PRN PRN Reason: PAIN Oxycodone/Acetaminophen (Percocet 325-5 Mg) 1 tab PO Q6H PRN PRN Reason: Pain Roflumilast 250 Mcg 0 each PO Q48H [facility] Albuterol 6.7 Gm (Inhaler (Ventolin)) 0 each INH BID [facility] Last Admin: 10/25/16 09:04 Dose: 2 each Albuterol 6.7 Gm (Inhaler (Ventolin)) 0 each INH Q4H PRN PRN Reason: Shortness of Breath Levothyroxine 25 Mcg Tab (Synthroid Brand) 0 each PO ACBREAKFAST [facility] Last Admin: 10/25/16 09:15 Dose: 25 each Polyethylene Glycol (Miralax) 17 gm PO DAILY PRN PRN Reason: Constipation Potassium Chloride (Klor-Con 10) 10 meq PO DAILY [facility] Last Admin: 10/25/16 09:08 Dose: 10 meq Potassium Chloride (Pharmacy To Dose - Potassium Replacement) 0 dose .XX ASDIRECTED PRN PRN Reason: RX TO WATCH K LEVELS Senna/Docusate Sodium (Senna Plus) 1 tab PO BID PRN PRN Reason: Constipation Simvastatin (Zocor) 20 mg PO BEDTIME [facility] Sitagliptin Phosphate (Januvia) 100 mg PO DAILY [facility] Last Admin: 10/25/16 09:01 Dose: 100 mg Temazepam (Restoril) 7.5 mg PO BEDTIME PRN PRN Reason: Sleep Tiotropium [place] (Spiriva Handihaler) 18 mcg INH DAILY [facility] Last Admin: 10/25/16 08:45 Dose: 1 cap Assessment/Plan Comment:: Assessment/Plan: 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
[2016-10-25] MEDS ORDERED: Albuterol 6.7 GM Inhaler INH SCH ×2 (09:00)
[2016-10-25] MEDS ORDERED: Formoterol/Mometasone 200-5 MCG 8.8 GM Inhaler IH SCH (09:00)
[2016-10-25] MEDS: Carvedilol 6.25 MG Tab PO SCH ×2 (09:01→22:44)
[2016-10-25] MEDS: Multivitamins,Therapeutic Tab PO SCH (09:01)
[2016-10-25] MEDS: ALBUTEROL INH SCH ×2 (09:04→21:29)
[2016-10-25] MEDS ORDERED: ALBUTEROL INH PRN (09:05)
[2016-10-25] MEDS: Fish Oil/Omega-3 Fatty Acids 1 Gm Cap PO SCH ×2 (09:07→20:57)
[2016-10-25] MEDS: Lisinopril 10 MG Tab PO SCH (09:07)
[2016-10-25] MEDS: Potassium Chloride 10 MEQ Tab.ER PO SCH (09:08)
[2016-10-25] MEDS: guaiFENesin 600 MG Tab.ER PO SCH (09:08)
[2016-10-25] MEDS: Docusate Sodium 100 MG Cap PO SCH ×2 (09:08→20:56)
[2016-10-25] MEDS: LEVOTHYROXINE 25 MCG PO SCH (09:15)
[2016-10-25] MEDS ORDERED: Pneumococcal 13-Valent Conjugate Vaccine 0.5 ML Syringe IM ONE (11:40)
[2016-10-25] MEDS ORDERED: Furosemide 20 MG Tab PO SCH (14:00)
[2016-10-25] MEDS: metFORMIN 500 MG Tab PO SCH (17:07)
[2016-10-25] MEDS: Montelukast 10 MG Tab PO SCH (20:56)
[2016-10-25] MEDS: Insulin Detemir 100 Units/ML 3 ML Pen SUBCUT SCH (20:58)
[2016-10-25] MEDS: Simvastatin 20 MG Tab PO SCH (20:58)
[2016-10-25] MEDS ORDERED: Temazepam 7.5 MG Cap PO PRN (21:00)
[2016-10-26] MEDS: cefTRIAXone 1 GM in Sodium Chloride 0.9% 100 ML IV SCH (02:22)
[2016-10-26] MEDS: metFORMIN 500 MG Tab PO SCH ×2 (06:09→17:59)
[2016-10-26] MEDS: LEVOTHYROXINE 25 MCG PO SCH (06:10)
[2016-10-26] MEDS: Insulin Aspart 100 Units/ML 3 ML Pen SUBCUT SCH ×2 (06:15→20:42)
[2016-10-26] MEDS: Tiotropium Inhaler 18 MCG Inhalation Powder Cap Kit of 5 INH SCH (08:53)
[2016-10-26] MEDS: ALBUTEROL INH SCH ×2 (08:54→21:05)
[2016-10-26] MEDS: Insulin Detemir 100 Units/ML 3 ML Pen SUBCUT SCH ×2 (09:28→20:44)
[2016-10-26] MEDS: Aspirin 81 MG Tab.EC PO SCH (09:29)
[2016-10-26] MEDS: Fish Oil/Omega-3 Fatty Acids 1 Gm Cap PO SCH ×2 (09:29→20:36)
[2016-10-26] MEDS: Docusate Sodium 100 MG Cap PO SCH ×2 (09:29→20:42)
[2016-10-26] MEDS: guaiFENesin 600 MG Tab.ER PO SCH (09:29)
[2016-10-26] MEDS: Potassium Chloride 10 MEQ Tab.ER PO SCH (09:29)
[2016-10-26] MEDS: Multivitamins,Therapeutic Tab PO SCH (09:29)
[2016-10-26] MEDS: Lisinopril 10 MG Tab PO SCH ×2 (09:30→11:56)
[2016-10-26] MEDS: Carvedilol 6.25 MG Tab PO SCH ×2 (09:31→20:36)
--- NOTE | 2016-10-26 10:48 | PCM.PN ---
<Dena Martinez - Last Filed: 10/26/16 10:33> - General Info Date of Service: 10/26/16 Admission Dx/Problem (Free Text): Admission Diagnosis/Problem Admission Diagnosis/Problem Renal failure Functional Status: Reports: Pain Controlled - Review of Systems General: Reports: No Symptoms HEENT: Reports: No Symptoms Pulmonary: Reports: Shortness of Breath (COPD) Cardiovascular: Reports: No Symptoms Gastrointestinal: Reports: No Symptoms Genitourinary: Reports: No Symptoms Musculoskeletal: Reports: No Symptoms Skin: Reports: No Symptoms Neurological: Reports: No Symptoms Psychiatric: Reports: No Symptoms - Patient Data Vitals - Most Recent: Last Vital Signs Temp 98.3 F 10/26/16 04:00 Pulse 86 10/26/16 09:34 Resp 16 10/26/16 09:36 BP 104/48 L 10/26/16 09:34 Pulse Ox 94 L 10/26/16 09:36 Weight - Most Recent: 79.424 kg I&O - Last 24 Hours: Intake & Output 10/25/16 10/26/16 10/26/16 22:59 06:59 14:59 Intake Total 2037 1756 534 Output Total 700 500 0 Balance 1337 1256 534 Lab Results Last 24 Hours: Laboratory Results - last 24 hr 10/25/16 10/25/16 10/25/16 Range/Units 10:51 17:05 20:52 WBC (3.98-10.04) K/mm3 RBC (3.98-5.22) M/mm3 Hgb (11.2-15.7) gm/L Hct (34.1-44.9) % MCV (79.4-94.8) fl MCH (25.6-32.2) pg MCHC (32.2-35.5) g/dl RDW Std Deviation (36.4-46.3) fL Plt Count (182-369) K/mm3 MPV (9.4-12.3) fl Neut % (Auto) (34.0-71.1) % Lymph % (Auto) (19.3-51.7) % [place] % (Auto) (4.7-12.5) % Eos % (Auto) (0.7-5.8) Baso % (Auto) (0.1-1.2) % Neut # (Auto) (1.56-6.13) K/mm3 Lymph # (Auto) (1.18-3.74) K/mm3 [place] # (Auto) (0.24-0.36) K/mm3 Eos # (Auto) (0.04-0.36) K/mm3 Baso # (Auto) (0.01-0.08) K/mm3 POC Glucose 153 H 120 H 140 H (83-110) mg/dL Magnesium (1.8-2.4) mg/dl 10/26/16 10/26/16 10/26/16 Range/Units 05:32 05:32 06:14 WBC 9.44 (3.98-10.04) K/mm3 RBC 3.02 L (3.98-5.22) M/mm3 Hgb 9.3 L (11.2-15.7) gm/L Hct 29.5 L (34.1-44.9) % MCV 97.7 H (79.4-94.8) fl MCH 30.8 (25.6-32.2) pg MCHC 31.5 L (32.2-35.5) g/dl RDW Std Deviation 50.0 H (36.4-46.3) fL Plt Count 208 (182-369) K/mm3 MPV 10.2 (9.4-12.3) fl Neut % (Auto) 78.9 H (34.0-71.1) % Lymph % (Auto) 12.0 L (19.3-51.7) % [place] % (Auto) 6.4 (4.7-12.5) % Eos % (Auto) 2.2 (0.7-5.8) Baso % (Auto) 0.2 (0.1-1.2) % Neut # (Auto) 7.45 H (1.56-6.13) K/mm3 Lymph # (Auto) 1.13 L (1.18-3.74) K/mm3 [place] # (Auto) 0.60 H (0.24-0.36) K/mm3 Eos # (Auto) 0.21 (0.04-0.36) K/mm3 Baso # (Auto) 0.02 (0.01-0.08) K/mm3 POC Glucose 134 H (83-110) mg/dL Magnesium 1.9 (1.8-2.4) mg/dl Med Orders - Current: Current Medications Acetaminophen (Tylenol) 650 mg PO Q4H PRN PRN Reason: Pain (Mild 1-3)/fever Hydrocodone Bitart/Acetaminophen ([place] 325-5 Mg) 1 tab PO Q4H PRN PRN Reason: Pain (moderate 4-6) Albuterol/Ipratropium (Duoneb 3.0-0.5 Mg/3 Ml) 3 ml NEB Q4HRRT PRN PRN Reason: Shortness of Breath Aspirin (Halfprin) 81 mg PO Q48H [facility] Last Admin: 10/26/16 09:29 Dose: 81 mg Bisacodyl (Dulcolax) 5 mg PO DAILY PRN PRN Reason: Constipation Carvedilol (Coreg) 6.25 mg PO BID [facility] Last Admin: 10/26/16 09:31 Dose: 6.25 mg Dextrose/Water (Dextrose 50% In Water) 50 ml IVPUSH ASDIRECTED PRN PRN Reason: Hypoglycemia Docusate Sodium (Colace) 100 mg PO BID PRN PRN Reason: Constipation Docusate Sodium (Colace) 200 mg PO BID [facility] Last Admin: 10/26/16 09:29 Dose: 200 mg Fish Oil (Fish Oil) 1 gm PO BID [facility] Last Admin: 10/26/16 09:29 Dose: 1 gm Guaifenesin (Mucinex) 600 mg PO DAILY [facility] Last Admin: 10/26/16 09:29 Dose: 600 mg Hydralazine HCl (Apresoline) 20 mg IVPUSH Q4H PRN PRN Reason: Hypertension Promethazine HCl 12.5 mg/ (Sodium Chloride) 50.5 mls @ 100 mls/hr IV Q6H PRN PRN Reason: Nausea/Vomiting Ceftriaxone Sodium 1 gm/ (Sodium Chloride) 100 mls @ 200 mls/hr IV Q24H [facility] Last Admin: 10/26/16 02:22 Dose: 200 mls/hr Insulin Aspart (Novolog) 0 unit SUBCUT BID@0700,2100 [facility] PRN Reason: Protocol Last Admin: 10/26/16 06:15 Dose: Not Given Insulin Detemir (Levemir) 6 unit SUBCUT BID [facility] Last Admin: 09/01/17 09:28 Dose: 6 units Lisinopril (Prinivil) 10 mg PO DAILY [facility] Last Admin: 10/26/16 09:30 Dose: 10 mg Lorazepam (Ativan) 1 mg IV Q6H PRN PRN Reason: Anxiety Magnesium Sulfate (Pharmacy To Dose - Magnesium Replacement) 0 dose .XX ASDIRECTED PRN PRN Reason: RX TO WATCH MAG LEVELS Metformin HCl (Glucophage) 250 mg PO BIDM [facility] Last Admin: 10/26/16 06:09 Dose: 250 mg Metoprolol Tartrate (Lopressor) 5 mg IVPUSH Q4H PRN PRN Reason: Tachycardia Montelukast Sodium (Singulair) 10 mg PO BEDTIME [facility] Last Admin: 10/25/16 20:56 Dose: 10 mg Multivitamins (Thera) 1 each PO DAILY [facility] Last Admin: 10/26/16 09:29 Dose: 1 each Ondansetron HCl (Zofran) 4 mg IV Q6H PRN PRN Reason: Nausea/Vomiting Oxycodone HCl (Oxycodone) 5 mg PO Q6H PRN PRN Reason: PAIN Oxycodone/Acetaminophen (Percocet 325-5 Mg) 1 tab PO Q6H PRN PRN Reason: Pain Roflumilast 250 Mcg 0 each PO Q48H [facility] Albuterol 6.7 Gm (Inhaler (Ventolin)) 0 each INH BID [facility] Last Admin: 10/26/16 08:54 Dose: 2 each Albuterol 6.7 Gm (Inhaler (Ventolin)) 0 each INH Q4H PRN PRN Reason: Shortness of Breath Levothyroxine 25 Mcg Tab (Synthroid Brand) 0 each PO ACBREAKFAST [facility] Last Admin: 10/26/16 06:10 Dose: 25 each Polyethylene Glycol (Miralax) 17 gm PO DAILY PRN PRN Reason: Constipation Potassium Chloride (Klor-Con 10) 10 meq PO DAILY [facility] Last Admin: 10/26/16 09:29 Dose: 10 meq Potassium Chloride (Pharmacy To Dose - Potassium Replacement) 0 dose .XX ASDIRECTED PRN PRN Reason: RX TO WATCH K LEVELS Senna/Docusate Sodium (Senna Plus) 1 tab PO BID PRN PRN Reason: Constipation Last Admin: 10/25/16 18:48 Dose: 1 tab Simvastatin (Zocor) 20 mg PO BEDTIME [facility] Last Admin: 10/25/16 20:58 Dose: 20 mg Sitagliptin Phosphate (Januvia) 100 mg PO DAILY [facility] Last Admin: 10/26/16 09:29 Dose: 100 mg Temazepam (Restoril) 7.5 mg PO BEDTIME PRN PRN Reason: Sleep Tiotropium Steele (Spiriva Handihaler) 18 mcg INH DAILY [facility] Last Admin: 10/26/16 08:53 Dose: 1 cap Discontinued Medications Acetaminophen (Tylenol) 650 mg PO Q6H PRN PRN Reason: Fever Albuterol (Proventil Hfa) 0 gm INH Q4H PRN PRN Reason: Shortness of Breath Albuterol (Proventil Hfa) 0 gm INH BID [facility] Albuterol (Proventil Hfa) 0 gm INH BID [facility] Furosemide (Lasix) 40 mg PO DAILY@0600 [facility] Last Admin: 10/25/16 09:07 Dose: 40 mg Furosemide (Lasix) 20 mg PO DAILY@1400 [facility] Sodium Chloride (Normal Saline) 500 mls @ 999 mls/hr IV .BOLUS ONE Stop: 10/25/16 00:53 Last Admin: 10/25/16 00:41 Dose: 999 mls/hr Ceftriaxone Sodium 1 gm/ (Sodium Chloride) 100 mls @ 200 mls/hr IV ONETIME ONE Stop: 10/25/16 02:48 Last Admin: 10/25/16 02:41 Dose: 200 mls/hr Sodium Chloride (Normal Saline) 1,000 mls @ 100 mls/hr IV ASDIRECTED [facility] Last Admin: 10/25/16 18:06 Dose: 100 mls/hr Insulin Aspart (Novolog) 0 unit SUBCUT QIDACANDBED [facility] PRN Reason: Protocol Levothyroxine Sodium (Levothyroxine) 25 mcg PO ACBREAKFAST [facility] Mometasone Furoate/Formoterol Fumar (Dulera 200-5 Mcg) 2 puff IH BID [facility] Last Admin: 10/25/16 09:08 Dose: Not Given Morphine Sulfate (Morphine) 1 mg IVPUSH Q4H PRN PRN Reason: Pain (severe 7-10) Stop: 10/26/16 07:33 Pneumococcal 13-Valent Conj Vacc (Prevnar 13) 0.5 ml IM .ONCE ONE Stop: 10/25/16 11:41 Polyethylene Glycol (Miralax) 17 gm PO DAILY PRN PRN Reason: Constipation - Exam Quality Assessment: Supplemental Oxygen, DVT Prophylaxis General: Alert, Oriented Lungs: Decreased Breath Sounds (COPD related) Cardiovascular: Regular Rate, Regular Rhythm GI/Abdominal Exam: Soft, Non-Tender, No Distention (Female) Exam: Deferred Back Exam: Normal Inspection, Full Range of Motion Extremities: Normal Inspection, Normal Range of Motion, Non-Tender, No Pedal Edema Skin: Warm, Dry, Intact Neurological: No New Focal Deficit Psy/Mental Status: Alert, Normal Affect, Normal Mood - Problem List & Annotations (1) Dehydration SNOMED Code(s): 96870769 Code(s): E86.0 - DEHYDRATION Status: Acute Current Visit: Yes (2) Renal insufficiency SNOMED Code(s): 092492805 Code(s): N28.9 - DISORDER OF KIDNEY AND URETER, UNSPECIFIED Status: Acute Current Visit: Yes - Plan Plan:: Assessment/Plan: Patient is a 71 yo female that presented to ER on 10/24/16, with urinary difficulties. The patient reports that she had increased urgency and frequency, but was unable to void completely. Patient does not report any CVA tenderness, fever, chills or pain with urination. Patient reports lower back pain that she attributes to long periods of sitting. The patient has a history of COPD, diabetes, chronic kidney disease and hypothyroid. Labs revealed a possible urinary tract infection. Patient is on ceftriaxone for treatment. On physical examination the patient reports no acute distress and reports that her symptoms have resolved and she is back to her baseline. 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, she is at baseline DM2 Hypothyroidism Peripheral Edema 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 Meds except lasix Can safely resume ACEI and low dose Metformin Routine AM Labs ADA Diet Acu-check and ISS AM/HS Continue IV Hydration PT/OT consult SW/CM for d/c planning Code status: DNR <Lisa Chang M - Last Filed: 10/27/16 12:31> - Patient Data Vitals - Most Recent: Last Vital Signs Temp 37.2 C 10/27/16 12:00 Pulse 79 10/27/16 12:00 Resp 22 H 10/27/16 12:00 BP 98/56 L 10/27/16 09:51 Pulse Ox 96 10/27/16 12:00 I&O - Last 24 Hours: Intake & Output 10/26/16 10/27/16 10/27/16 22:59 06:59 14:59 Intake Total 1620 400 180 Output Total 800 1200 Balance 820 -800 180 Lab Results Last 24 Hours: Laboratory Results - last 24 hr 10/26/16 10/27/16 10/27/16 Range/Units 20:31 05:45 05:45 WBC 9.13 (3.98-10.04) K/mm3 RBC 3.08 L (3.98-5.22) M/mm3 Hgb 9.4 L (11.2-15.7) gm/L Hct 29.7 L (34.1-44.9) % MCV 96.4 H (79.4-94.8) fl MCH 30.5 (25.6-32.2) pg MCHC 31.6 L (32.2-35.5) g/dl RDW Std Deviation 49.1 H (36.4-46.3) fL Plt Count 206 (182-369) K/mm3 MPV 10.0 (9.4-12.3) fl Neut % (Auto) 77.4 H (34.0-71.1) % Lymph % (Auto) 13.5 L (19.3-51.7) % [place] % (Auto) 6.1 (4.7-12.5) % Eos % (Auto) 2.8 (0.7-5.8) Baso % (Auto) 0.2 (0.1-1.2) % Neut # (Auto) 7.06 H (1.56-6.13) K/mm3 Lymph # (Auto) 1.23 (1.18-3.74) K/mm3 [place] # (Auto) 0.56 H (0.24-0.36) K/mm3 Eos # (Auto) 0.26 (0.04-0.36) K/mm3 Baso # (Auto) 0.02 (0.01-0.08) K/mm3 Sodium 140 (136-145) mEq/L Potassium 4.4 (3.5-5.1) mEq/L Chloride 103 (98-107) mEq/L Carbon Dioxide 27 (21-32) mEq/L Anion Gap 14.4 (5-15) BUN 39 H (7-18) mg/dL Creatinine 1.3 H (0.55-1.02) mg/dL Est Cr Clr Drug Dosing 37.16 mL/min Estimated GFR (MDRD) 40 (>60) mL/min BUN/Creatinine Ratio 30.0 H (14-18) Glucose 139 H (83-115) mg/dL POC Glucose 166 H (83-110) mg/dL Calcium 9.2 (8.5-10.1) mg/dL Magnesium 1.8 (1.8-2.4) mg/dl C-Reactive Protein 4.0 H* (<1.0) mg/dL 10/27/16 Range/Units 06:05 WBC (3.98-10.04) K/mm3 RBC (3.98-5.22) M/mm3 Hgb (11.2-15.7) gm/L Hct (34.1-44.9) % MCV (79.4-94.8) fl MCH (25.6-32.2) pg MCHC (32.2-35.5) g/dl RDW Std Deviation (36.4-46.3) fL Plt Count (182-369) K/mm3 MPV (9.4-12.3) fl Neut % (Auto) (34.0-71.1) % Lymph % (Auto) (19.3-51.7) % [place] % (Auto) (4.7-12.5) % Eos % (Auto) (0.7-5.8) Baso % (Auto) (0.1-1.2) % Neut # (Auto) (1.56-6.13) K/mm3 Lymph # (Auto) (1.18-3.74) K/mm3 [place] # (Auto) (0.24-0.36) K/mm3 Eos # (Auto) (0.04-0.36) K/mm3 Baso # (Auto) (0.01-0.08) K/mm3 Sodium (136-145) mEq/L Potassium (3.5-5.1) mEq/L Chloride (98-107) mEq/L Carbon Dioxide (21-32) mEq/L Anion Gap (5-15) BUN (7-18) mg/dL Creatinine (0.55-1.02) mg/dL Est Cr Clr Drug Dosing mL/min Estimated GFR (MDRD) (>60) mL/min BUN/Creatinine Ratio (14-18) Glucose (83-115) mg/dL POC Glucose 122 H (83-110) mg/dL Calcium (8.5-10.1) mg/dL Magnesium (1.8-2.4) mg/dl C-Reactive Protein (<1.0) mg/dL Med Orders - Current: Current Medications Acetaminophen (Tylenol) 650 mg PO Q4H PRN PRN Reason: Pain (Mild 1-3)/fever Albuterol/Ipratropium (Duoneb 3.0-0.5 Mg/3 Ml) 3 ml NEB Q4HRRT PRN PRN Reason: Shortness of Breath Aspirin (Halfprin) 81 mg PO Q48H [facility] Last Admin: 10/26/16 09:29 Dose: 81 mg Carvedilol (Coreg) 6.25 mg PO BID [facility] Last Admin: 10/26/16 20:36 Dose: 6.25 mg Dextrose/Water (Dextrose 50% In Water) 50 ml IVPUSH ASDIRECTED PRN PRN Reason: Hypoglycemia Diltiazem HCl (Dilacor Xr) 240 mg PO DAILY [facility] Last Admin: 10/27/16 12:03 Dose: 240 mg Docusate Sodium (Colace) 100 mg PO BID [facility] Last Admin: 10/27/16 08:28 Dose: 100 mg Fish Oil (Fish Oil) 1 gm PO BID [facility] Last Admin: 10/27/16 08:27 Dose: 1 gm Furosemide (Lasix) 20 mg PO 1400 [facility] Last Admin: 10/26/16 14:04 Dose: 20 mg Guaifenesin (Mucinex) 600 mg PO DAILY [facility] Last Admin: 10/27/16 08:27 Dose: 600 mg Hydralazine HCl (Apresoline) 20 mg IVPUSH Q4H PRN PRN Reason: Hypertension Ceftriaxone Sodium 1 gm/ (Sodium Chloride) 100 mls @ 200 mls/hr IV Q24H [facility] Last Admin: 10/27/16 03:28 Dose: 200 mls/hr Insulin Aspart (Novolog) 0 unit SUBCUT BID@0700,2100 [facility] PRN Reason: Protocol Last Admin: 10/27/16 06:55 Dose: Not Given Insulin Detemir (Levemir) 6 unit SUBCUT BID [facility] Last Admin: 10/27/16 08:32 Dose: 6 units Ipratropium [place] (Atrovent 0.06% Nasal [place]) 0 ml NASBOTH BID PRN PRN Reason: nasal drainage Lisinopril (Prinivil) 10 mg PO DAILY [facility] Last Admin: 10/26/16 11:56 Dose: Not Given Metformin HCl (Glucophage) 250 mg PO BIDM [facility] Last Admin: 10/27/16 06:11 Dose: 250 mg Metoprolol Tartrate (Lopressor) 5 mg IVPUSH Q4H PRN PRN Reason: Tachycardia Montelukast Sodium (Singulair) 10 mg PO BEDTIME [facility] Last Admin: 10/26/16 20:41 Dose: 10 mg Multivitamins (Thera) 1 each PO DAILY [facility] Last Admin: 10/27/16 08:28 Dose: 1 each Ondansetron HCl (Zofran) 4 mg IV Q6H PRN PRN Reason: Nausea/Vomiting Roflumilast 250 Mcg 0 each PO Q48H [facility] Last Admin: 10/26/16 10:55 Dose: Not Given Albuterol 6.7 Gm (Inhaler (Ventolin)) 0 each INH BID [facility] Last Admin: 10/27/16 09:04 Dose: 2 each Albuterol 6.7 Gm (Inhaler (Ventolin)) 0 each INH Q4H PRN PRN Reason: Shortness of Breath Levothyroxine 25 Mcg Tab (Synthroid Brand) 0 each PO ACBREAKFAST [facility] Last Admin: 10/27/16 06:10 Dose: 1 each Polyethylene Glycol (Miralax) 17 gm PO DAILY PRN PRN Reason: Constipation Potassium Chloride (Klor-Con 10) 10 meq PO DAILY [facility] Last Admin: 10/27/16 08:27 Dose: 10 meq Simvastatin (Zocor) 20 mg PO BEDTIME [facility] Last Admin: 10/26/16 20:41 Dose: 20 mg Sitagliptin Phosphate (Januvia) 100 mg PO DAILY [facility] Last Admin: 10/27/16 08:27 Dose: 100 mg Temazepam (Restoril) 7.5 mg PO BEDTIME PRN PRN Reason: Sleep Tiotropium [place] (Spiriva Handihaler) 18 mcg INH DAILY [facility] Last Admin: 10/27/16 09:06 Dose: 1 cap Discontinued Medications Acetaminophen (Tylenol) 650 mg PO Q6H PRN PRN Reason: Fever Hydrocodone Bitart/Acetaminophen ([place] 325-5 Mg) 1 tab PO Q4H PRN PRN Reason: Pain (moderate 4-6) Albuterol (Proventil Hfa) 0 gm INH Q4H PRN PRN Reason: Shortness of Breath Albuterol (Proventil Hfa) 0 gm INH BID [facility] Albuterol (Proventil Hfa) 0 gm INH BID [facility] Bisacodyl (Dulcolax) 5 mg PO DAILY PRN PRN Reason: Constipation Docusate Sodium (Colace) 100 mg PO BID PRN PRN Reason: Constipation Docusate Sodium (Colace) 200 mg PO BID [facility] Last Admin: 10/26/16 09:29 Dose: 200 mg Furosemide (Lasix) 40 mg PO DAILY@0600 [facility] Last Admin: 10/25/16 09:07 Dose: 40 mg Furosemide (Lasix) 20 mg PO DAILY@1400 [facility] Sodium Chloride (Normal Saline) 500 mls @ 999 mls/hr IV .BOLUS ONE Stop: 10/25/16 00:53 Last Admin: 10/25/16 00:41 Dose: 999 mls/hr Ceftriaxone Sodium 1 gm/ (Sodium Chloride) 100 mls @ 200 mls/hr IV ONETIME ONE Stop: 10/25/16 02:48 Last Admin: 10/25/16 02:41 Dose: 200 mls/hr Sodium Chloride (Normal Saline) 1,000 mls @ 100 mls/hr IV ASDIRECTED [facility] Last Admin: 10/25/16 18:06 Dose: 100 mls/hr Promethazine HCl 12.5 mg/ (Sodium Chloride) 50.5 mls @ 100 mls/hr IV Q6H PRN PRN Reason: Nausea/Vomiting Insulin Aspart (Novolog) 0 unit SUBCUT QIDACANDBED [facility] PRN Reason: Protocol Levothyroxine Sodium (Levothyroxine) 25 mcg PO ACBREAKFAST [facility] Lorazepam (Ativan) 1 mg IV Q6H PRN PRN Reason: Anxiety Magnesium Sulfate (Pharmacy To Dose - Magnesium Replacement) 0 dose .XX ASDIRECTED PRN PRN Reason: RX TO WATCH MAG LEVELS Mometasone Furoate/Formoterol Fumar (Dulera 200-5 Mcg) 2 puff IH BID [facility] Last Admin: 10/25/16 09:08 Dose: Not Given Morphine Sulfate (Morphine) 1 mg IVPUSH Q4H PRN PRN Reason: Pain (severe 7-10) Stop: 10/26/16 07:33 Oxycodone HCl (Oxycodone) 5 mg PO Q6H PRN PRN Reason: PAIN Oxycodone/Acetaminophen (Percocet 325-5 Mg) 1 tab PO Q6H PRN PRN Reason: Pain Pneumococcal 13-Valent Conj Vacc (Prevnar 13) 0.5 ml IM .ONCE ONE Stop: 10/25/16 11:41 Polyethylene Glycol (Miralax) 17 gm PO DAILY PRN PRN Reason: Constipation Potassium Chloride (Pharmacy To Dose - Potassium Replacement) 0 dose .XX ASDIRECTED PRN PRN Reason: RX TO WATCH K LEVELS Senna/Docusate Sodium (Senna Plus) 1 tab PO BID PRN PRN Reason: Constipation Last Admin: 10/25/16 18:48 Dose: 1 tab - Problem List & Annotations (1) Hypertension SNOMED Code(s): 94738786 Code(s): I10 - ESSENTIAL (PRIMARY) HYPERTENSION Status: Acute Current Visit: Yes (2) PAD (peripheral artery disease) SNOMED Code(s): 552942455 Code(s): I73.9 - PERIPHERAL VASCULAR DISEASE, UNSPECIFIED Status: Acute Current Visit: Yes (3) Diabetes mellitus SNOMED Code(s): 20275731 Code(s): E11.9 - TYPE 2 DIABETES MELLITUS WITHOUT COMPLICATIONS Status: Acute Current Visit: Yes (4) Dehydration SNOMED Code(s): 67709106 Code(s): E86.0 - DEHYDRATION Status: Acute Current Visit: Yes (5) Renal insufficiency SNOMED Code(s): 543392835 Code(s): N28.9 - DISORDER OF KIDNEY AND URETER, UNSPECIFIED Status: Acute Current Visit: Yes (6) Tachycardia SNOMED Code(s): 4485934 Code(s): R00.0 - TACHYCARDIA, UNSPECIFIED Status: Acute Current Visit: Yes (7) COPD, Moderate chronic obstructive pulmonary disease SNOMED Code(s): 874689189 Code(s): J44.9 - CHRONIC OBSTRUCTIVE PULMONARY DISEASE, UNSPECIFIED Status : Acute Priority: Medium Current Visit: No (8) Hypothyroidism SNOMED Code(s): 94569011 Code(s): E03.9 - HYPOTHYROIDISM, UNSPECIFIED Status: Acute Priority: Medium Current Visit: No - Problem List Review Problem List Initiated/Reviewed/Updated: Yes - Plan Plan:: Clarify type of tachycardia; obtain EMR from clinic. DC plan in place, await UrCX.
[2016-10-26] MEDS: ROFLUMILAST 250 MCG PO SCH (10:55)
[2016-10-26] MEDS ORDERED: Ipratropium 0.06% Nasal Spray 15 ML Bottle NASBOTH PRN (13:35)
[2016-10-26] MEDS: Diltiazem 240 MG Cap.ER PO SCH (14:04)
[2016-10-26] MEDS: Furosemide 20 MG Tab PO SCH (14:04)
[2016-10-26] MEDS: Montelukast 10 MG Tab PO SCH (20:41)
[2016-10-26] MEDS: Simvastatin 20 MG Tab PO SCH (20:41)
[2016-10-27] MEDS: cefTRIAXone 1 GM in Sodium Chloride 0.9% 100 ML IV SCH (03:28)
[2016-10-27] MEDS: LEVOTHYROXINE 25 MCG PO SCH (06:10)
[2016-10-27] MEDS: metFORMIN 500 MG Tab PO SCH ×2 (06:11→17:34)
[2016-10-27] MEDS: Insulin Aspart 100 Units/ML 3 ML Pen SUBCUT SCH ×2 (06:55→21:49)
[2016-10-27] MEDS: Potassium Chloride 10 MEQ Tab.ER PO SCH (08:27)
[2016-10-27] MEDS: Fish Oil/Omega-3 Fatty Acids 1 Gm Cap PO SCH ×2 (08:27→20:17)
[2016-10-27] MEDS: guaiFENesin 600 MG Tab.ER PO SCH (08:27)
[2016-10-27] MEDS: Docusate Sodium 100 MG Cap PO SCH ×2 (08:28→20:17)
[2016-10-27] MEDS: Multivitamins,Therapeutic Tab PO SCH (08:28)
[2016-10-27] MEDS: Insulin Detemir 100 Units/ML 3 ML Pen SUBCUT SCH ×2 (08:32→21:48)
[2016-10-27] MEDS: ALBUTEROL INH SCH ×2 (09:04→20:21)
[2016-10-27] MEDS: Tiotropium Inhaler 18 MCG Inhalation Powder Cap Kit of 5 INH SCH (09:06)
--- NOTE | 2016-10-27 10:04 | PCM.PN ---
- General Info Date of Service: 10/27/16 Functional Status: Reports: Tolerating Diet, Other (insomnia, does not want sedative/hypnotic) - Review of Systems General: Reports: No Symptoms HEENT: Reports: No Symptoms Pulmonary: Reports: Shortness of Breath Cardiovascular: Reports: No Symptoms Gastrointestinal: Reports: No Symptoms Genitourinary: Reports: No Symptoms Musculoskeletal: Reports: No Symptoms Skin: Reports: No Symptoms Neurological: Reports: No Symptoms Psychiatric: Reports: No Symptoms - Patient Data Vitals - Most Recent: Last Vital Signs Temp 36.6 C 10/27/16 08:54 Pulse 78 10/27/16 08:54 Resp 24 H 10/27/16 08:54 BP 98/56 L 10/27/16 09:51 Pulse Ox 99 10/27/16 09:07 Weight - Most Recent: 79.605 kg I&O - Last 24 Hours: Intake & Output 10/26/16 10/27/16 10/27/16 22:59 06:59 14:59 Intake Total 1620 400 Output Total 800 1200 Balance 820 -800 Lab Results Last 24 Hours: Laboratory Results - last 24 hr 10/26/16 10/26/16 10/27/16 Range/Units 11:40 20:31 05:45 WBC 9.13 (3.98-10.04) K/mm3 RBC 3.08 L (3.98-5.22) M/mm3 Hgb 9.4 L (11.2-15.7) gm/L Hct 29.7 L (34.1-44.9) % MCV 96.4 H (79.4-94.8) fl MCH 30.5 (25.6-32.2) pg MCHC 31.6 L (32.2-35.5) g/dl RDW Std Deviation 49.1 H (36.4-46.3) fL Plt Count 206 (182-369) K/mm3 MPV 10.0 (9.4-12.3) fl Neut % (Auto) 77.4 H (34.0-71.1) % Lymph % (Auto) 13.5 L (19.3-51.7) % [place] % (Auto) 6.1 (4.7-12.5) % Eos % (Auto) 2.8 (0.7-5.8) Baso % (Auto) 0.2 (0.1-1.2) % Neut # (Auto) 7.06 H (1.56-6.13) K/mm3 Lymph # (Auto) 1.23 (1.18-3.74) K/mm3 [place] # (Auto) 0.56 H (0.24-0.36) K/mm3 Eos # (Auto) 0.26 (0.04-0.36) K/mm3 Baso # (Auto) 0.02 (0.01-0.08) K/mm3 Sodium 141 (136-145) mEq/L Potassium 4.3 (3.5-5.1) mEq/L Chloride 105 (98-107) mEq/L Carbon Dioxide 29 (21-32) mEq/L Anion Gap 11.3 (5-15) BUN 43 H (7-18) mg/dL Creatinine 1.3 H (0.55-1.02) mg/dL Est Cr Clr Drug Dosing 37.16 mL/min Estimated GFR (MDRD) 40 (>60) mL/min BUN/Creatinine Ratio 33.1 H (14-18) Glucose 108 (83-115) mg/dL POC Glucose 166 H (83-110) mg/dL Calcium 9.5 (8.5-10.1) mg/dL Magnesium (1.8-2.4) mg/dl C-Reactive Protein 5.5 H* (<1.0) mg/dL 10/27/16 10/27/16 Range/Units 05:45 06:05 WBC (3.98-10.04) K/mm3 RBC (3.98-5.22) M/mm3 Hgb (11.2-15.7) gm/L Hct (34.1-44.9) % MCV (79.4-94.8) fl MCH (25.6-32.2) pg MCHC (32.2-35.5) g/dl RDW Std Deviation (36.4-46.3) fL Plt Count (182-369) K/mm3 MPV (9.4-12.3) fl Neut % (Auto) (34.0-71.1) % Lymph % (Auto) (19.3-51.7) % [place] % (Auto) (4.7-12.5) % Eos % (Auto) (0.7-5.8) Baso % (Auto) (0.1-1.2) % Neut # (Auto) (1.56-6.13) K/mm3 Lymph # (Auto) (1.18-3.74) K/mm3 [place] # (Auto) (0.24-0.36) K/mm3 Eos # (Auto) (0.04-0.36) K/mm3 Baso # (Auto) (0.01-0.08) K/mm3 Sodium 140 (136-145) mEq/L Potassium 4.4 (3.5-5.1) mEq/L Chloride 103 (98-107) mEq/L Carbon Dioxide 27 (21-32) mEq/L Anion Gap 14.4 (5-15) BUN 39 H (7-18) mg/dL Creatinine 1.3 H (0.55-1.02) mg/dL Est Cr Clr Drug Dosing 37.16 mL/min Estimated GFR (MDRD) 40 (>60) mL/min BUN/Creatinine Ratio 30.0 H (14-18) Glucose 139 H (83-115) mg/dL POC Glucose 122 H (83-110) mg/dL Calcium 9.2 (8.5-10.1) mg/dL Magnesium 1.8 (1.8-2.4) mg/dl C-Reactive Protein 4.0 H* (<1.0) mg/dL Med Orders - Current: Current Medications Acetaminophen (Tylenol) 650 mg PO Q4H PRN PRN Reason: Pain (Mild 1-3)/fever Albuterol/Ipratropium (Duoneb 3.0-0.5 Mg/3 Ml) 3 ml NEB Q4HRRT PRN PRN Reason: Shortness of Breath Aspirin (Halfprin) 81 mg PO Q48H [facility] Last Admin: 10/26/16 09:29 Dose: 81 mg Carvedilol (Coreg) 6.25 mg PO BID [facility] Last Admin: 10/26/16 20:36 Dose: 6.25 mg Dextrose/Water (Dextrose 50% In Water) 50 ml IVPUSH ASDIRECTED PRN PRN Reason: Hypoglycemia Diltiazem HCl (Dilacor Xr) 240 mg PO DAILY [facility] Last Admin: 10/26/16 14:04 Dose: 240 mg Docusate Sodium (Colace) 100 mg PO BID [facility] Last Admin: 10/27/16 08:28 Dose: 100 mg Fish Oil (Fish Oil) 1 gm PO BID [facility] Last Admin: 10/27/16 08:27 Dose: 1 gm Furosemide (Lasix) 20 mg PO 1400 [facility] Last Admin: 10/26/16 14:04 Dose: 20 mg Guaifenesin (Mucinex) 600 mg PO DAILY [facility] Last Admin: 10/27/16 08:27 Dose: 600 mg Hydralazine HCl (Apresoline) 20 mg IVPUSH Q4H PRN PRN Reason: Hypertension Ceftriaxone Sodium 1 gm/ (Sodium Chloride) 100 mls @ 200 mls/hr IV Q24H [facility] Last Admin: 10/27/16 03:28 Dose: 200 mls/hr Insulin Aspart (Novolog) 0 unit SUBCUT BID@0700,2100 [facility] PRN Reason: Protocol Last Admin: 10/27/16 06:55 Dose: Not Given Insulin Detemir (Levemir) 6 unit SUBCUT BID [facility] Last Admin: 10/27/16 08:32 Dose: 6 units Ipratropium Powers (Atrovent 0.06% Nasal [place]) 0 ml NASBOTH BID PRN PRN Reason: nasal drainage Lisinopril (Prinivil) 10 mg PO DAILY [facility] Last Admin: 10/26/16 11:56 Dose: Not Given Metformin HCl (Glucophage) 250 mg PO BIDM [facility] Last Admin: 10/27/16 06:11 Dose: 250 mg Metoprolol Tartrate (Lopressor) 5 mg IVPUSH Q4H PRN PRN Reason: Tachycardia Montelukast Sodium (Singulair) 10 mg PO BEDTIME [facility] Last Admin: 10/26/16 20:41 Dose: 10 mg Multivitamins (Thera) 1 each PO DAILY [facility] Last Admin: 10/27/16 08:28 Dose: 1 each Ondansetron HCl (Zofran) 4 mg IV Q6H PRN PRN Reason: Nausea/Vomiting Roflumilast 250 Mcg 0 each PO Q48H [facility] Last Admin: 10/26/16 10:55 Dose: Not Given Albuterol 6.7 Gm (Inhaler (Ventolin)) 0 each INH BID [facility] Last Admin: 10/27/16 09:04 Dose: 2 each Albuterol 6.7 Gm (Inhaler (Ventolin)) 0 each INH Q4H PRN PRN Reason: Shortness of Breath Levothyroxine 25 Mcg Tab (Synthroid Brand) 0 each PO ACBREAKFAST [facility] Last Admin: 10/27/16 06:10 Dose: 1 each Polyethylene Glycol (Miralax) 17 gm PO DAILY PRN PRN Reason: Constipation Potassium Chloride (Klor-Con 10) 10 meq PO DAILY [facility] Last Admin: 10/27/16 08:27 Dose: 10 meq Simvastatin (Zocor) 20 mg PO BEDTIME [facility] Last Admin: 10/26/16 20:41 Dose: 20 mg Sitagliptin Phosphate (Januvia) 100 mg PO DAILY [facility] Last Admin: 10/27/16 08:27 Dose: 100 mg Temazepam (Restoril) 7.5 mg PO BEDTIME PRN PRN Reason: Sleep Tiotropium Powers (Spiriva Handihaler) 18 mcg INH DAILY [facility] Last Admin: 10/27/16 09:06 Dose: 1 cap Discontinued Medications Acetaminophen (Tylenol) 650 mg PO Q6H PRN PRN Reason: Fever Hydrocodone Bitart/Acetaminophen ([place] 325-5 Mg) 1 tab PO Q4H PRN PRN Reason: Pain (moderate 4-6) Albuterol (Proventil Hfa) 0 gm INH Q4H PRN PRN Reason: Shortness of Breath Albuterol (Proventil Hfa) 0 gm INH BID [facility] Albuterol (Proventil Hfa) 0 gm INH BID [facility] Bisacodyl (Dulcolax) 5 mg PO DAILY PRN PRN Reason: Constipation Docusate Sodium (Colace) 100 mg PO BID PRN PRN Reason: Constipation Docusate Sodium (Colace) 200 mg PO BID [facility] Last Admin: 10/26/16 09:29 Dose: 200 mg Furosemide (Lasix) 40 mg PO DAILY@0600 [facility] Last Admin: 10/25/16 09:07 Dose: 40 mg Furosemide (Lasix) 20 mg PO DAILY@1400 [facility] Sodium Chloride (Normal Saline) 500 mls @ 999 mls/hr IV .BOLUS ONE Stop: 10/25/16 00:53 Last Admin: 10/25/16 00:41 Dose: 999 mls/hr Ceftriaxone Sodium 1 gm/ (Sodium Chloride) 100 mls @ 200 mls/hr IV ONETIME ONE Stop: 10/25/16 02:48 Last Admin: 10/25/16 02:41 Dose: 200 mls/hr Sodium Chloride (Normal Saline) 1,000 mls @ 100 mls/hr IV ASDIRECTED [facility] Last Admin: 10/25/16 18:06 Dose: 100 mls/hr Promethazine HCl 12.5 mg/ (Sodium Chloride) 50.5 mls @ 100 mls/hr IV Q6H PRN PRN Reason: Nausea/Vomiting Insulin Aspart (Novolog) 0 unit SUBCUT QIDACANDBED [facility] PRN Reason: Protocol Levothyroxine Sodium (Levothyroxine) 25 mcg PO ACBREAKFAST [facility] Lorazepam (Ativan) 1 mg IV Q6H PRN PRN Reason: Anxiety Magnesium Sulfate (Pharmacy To Dose - Magnesium Replacement) 0 dose .XX ASDIRECTED PRN PRN Reason: RX TO WATCH MAG LEVELS Mometasone Furoate/Formoterol Fumar (Dulera 200-5 Mcg) 2 puff IH BID [facility] Last Admin: 10/25/16 09:08 Dose: Not Given Morphine Sulfate (Morphine) 1 mg IVPUSH Q4H PRN PRN Reason: Pain (severe 7-10) Stop: 10/26/16 07:33 Oxycodone HCl (Oxycodone) 5 mg PO Q6H PRN PRN Reason: PAIN Oxycodone/Acetaminophen (Percocet 325-5 Mg) 1 tab PO Q6H PRN PRN Reason: Pain Pneumococcal 13-Valent Conj Vacc (Prevnar 13) 0.5 ml IM .ONCE ONE Stop: 10/25/16 11:41 Polyethylene Glycol (Miralax) 17 gm PO DAILY PRN PRN Reason: Constipation Potassium Chloride (Pharmacy To Dose - Potassium Replacement) 0 dose .XX ASDIRECTED PRN PRN Reason: RX TO WATCH K LEVELS Senna/Docusate Sodium (Senna Plus) 1 tab PO BID PRN PRN Reason: Constipation Last Admin: 10/25/16 18:48 Dose: 1 tab - Exam Quality Assessment: Supplemental Oxygen, DVT Prophylaxis General: Alert, Oriented, Cooperative, No Acute Distress HEENT: Pupils Equal, Pupils Reactive, EOMI Neck: Supple, Trachea Midline Lungs: Normal Respiratory Effort, Decreased Breath Sounds Cardiovascular: Regular Rate GI/Abdominal Exam: Normal Bowel Sounds, Soft, Non-Tender, No Distention (Female) Exam: Deferred Back Exam: Normal Inspection Extremities: Normal Inspection Skin: Warm Neurological: No New Focal Deficit Psy/Mental Status: Alert, Normal Affect, Normal Mood - Problem List & Annotations (1) Dehydration SNOMED Code(s): 92148520 Code(s): E86.0 - DEHYDRATION Status: Acute Current Visit: Yes (2) Diabetes mellitus SNOMED Code(s): 63867449 Code(s): E11.9 - TYPE 2 DIABETES MELLITUS WITHOUT COMPLICATIONS Status: Acute Current Visit: Yes (3) Hypertension SNOMED Code(s): 25195247 Code(s): I10 - ESSENTIAL (PRIMARY) HYPERTENSION Status: Acute Current Visit: Yes (4) PAD (peripheral artery disease) SNOMED Code(s): 127977922 Code(s): I73.9 - PERIPHERAL VASCULAR DISEASE, UNSPECIFIED Status: Acute Current Visit: Yes (5) Renal insufficiency SNOMED Code(s): 374391244 Code(s): N28.9 - DISORDER OF KIDNEY AND URETER, UNSPECIFIED Status: Acute Current Visit: Yes (6) Breast lump SNOMED Code(s): 32711900 Code(s): N63 - UNSPECIFIED LUMP IN BREAST Status: Acute Priority: Medium Current Visit: No (7) COPD, Moderate chronic obstructive pulmonary disease SNOMED Code(s): 500120855 Code(s): J44.9 - CHRONIC OBSTRUCTIVE PULMONARY DISEASE, UNSPECIFIED Status : Acute Priority: Medium Current Visit: No - Problem List Review Problem List Initiated/Reviewed/Updated: Yes - Plan Plan:: Assessment/Plan: Acute: UTI - UA pos for UTI - Risk Factor:DM and somewhat unhygienic - She is not on oral steroids - Received 1gram IV Rocephin in ED, will continue same antibiotic - UA Cx/Sx-->E Coli sensitive to Rocephin Probable Overactive Bladder - Had urinary frequency and urgency - Risk Factor: 3 vaginal delivery - Supportive care and Conservative Management - Further work up outpatient High Risk Poly-pharmacy Untrimmed/Long Toe Nails - Refer to Podiatry after discharge Chronic: Impaired Vision Advanced COPD, Stable Respiratory Failure, on 4L NC, Stable 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 Code status: DNR
[2016-10-27] MEDS: Diltiazem 240 MG Cap.ER PO SCH (12:03)
[2016-10-27] MEDS: Carvedilol 6.25 MG Tab PO SCH ×2 (12:30→20:16)
[2016-10-27] MEDS ORDERED: Magnesium Hydroxide 400 MG/5 ML Susp 30 ML Cup PO ONE (13:15)
[2016-10-27] MEDS: Furosemide 20 MG Tab PO SCH (14:10)
[2016-10-27] MEDS: Lisinopril 10 MG Tab PO SCH (17:36)
[2016-10-27] MEDS: Simvastatin 20 MG Tab PO SCH (20:17)
[2016-10-27] MEDS: Montelukast 10 MG Tab PO SCH (20:17)
[2016-10-28] MEDS: cefTRIAXone 1 GM in Sodium Chloride 0.9% 100 ML IV SCH (02:03)
[2016-10-28] MEDS: metFORMIN 500 MG Tab PO SCH (06:43)
[2016-10-28] MEDS: Insulin Aspart 100 Units/ML 3 ML Pen SUBCUT SCH (06:44)
[2016-10-28] MEDS: LEVOTHYROXINE 25 MCG PO SCH (06:44)
[2016-10-28] MEDS: Insulin Detemir 100 Units/ML 3 ML Pen SUBCUT SCH (08:26)
[2016-10-28] MEDS: guaiFENesin 600 MG Tab.ER PO SCH (08:29)
[2016-10-28] MEDS: Diltiazem 240 MG Cap.ER PO SCH (08:30)
[2016-10-28] MEDS: Aspirin 81 MG Tab.EC PO SCH (08:30)
[2016-10-28] MEDS: Docusate Sodium 100 MG Cap PO SCH (08:30)
[2016-10-28] MEDS: Fish Oil/Omega-3 Fatty Acids 1 Gm Cap PO SCH (08:30)
[2016-10-28] MEDS: Lisinopril 10 MG Tab PO SCH (08:30)
[2016-10-28] MEDS: Potassium Chloride 10 MEQ Tab.ER PO SCH (08:30)
[2016-10-28] MEDS: Carvedilol 6.25 MG Tab PO SCH (08:30)
[2016-10-28] MEDS: Multivitamins,Therapeutic Tab PO SCH (08:30)
[2016-10-28] MEDS: Tiotropium Inhaler 18 MCG Inhalation Powder Cap Kit of 5 INH SCH (08:43)
[2016-10-28] MEDS: ALBUTEROL INH SCH (08:44)
[2016-10-28] MEDS: ROFLUMILAST 250 MCG PO SCH (10:34)
--- NOTE | 2016-10-28 10:46 | PCM.DCSUM1 ---
Discharge Summary - Hospital Course Free Text/Narrative:: 71 year old female with COPD, and Diabetes mellitus was treated for an acute UTI ; she received IV Rocephin and was discharged to home on Ceftin 500 mg BID for 5 days. Home meds were resumed with a need to follow up with her PCP for reassessment of her current medical therapy. Diabetic medication as well as diuretic therapy may need to be adjusted. The patient has been advised to see a police or patrol park officer on a scheduled basis. Primary Dx AUTI Dehydration Acute on Chronic Kidney Disease COPD DM HTN Follow up 1-2 weeks with PCP Ophthalmology yearly Podiatry at least twice a year Instructions Discontinue tobacco products. Diabetic care Diet/Activity Resume previous diet As tolerated - Discharge Data Discharge Date: 10/28/16 Discharge Disposition: Home, Self-Care 01 Condition: Good - Discharge Diagnosis/Problem(s) (1) Dehydration SNOMED Code(s): 70818752 ICD Code: E86.0 - DEHYDRATION Status: Acute (2) Diabetes mellitus SNOMED Code(s): 37698567 ICD Code: E11.9 - TYPE 2 DIABETES MELLITUS WITHOUT COMPLICATIONS Status: Acute (3) Hypertension SNOMED Code(s): 70220420 ICD Code: I10 - ESSENTIAL (PRIMARY) HYPERTENSION Status: Acute (4) PAD (peripheral artery disease) SNOMED Code(s): 689085927 ICD Code: I73.9 - PERIPHERAL VASCULAR DISEASE, UNSPECIFIED Status: Acute (5) Renal insufficiency SNOMED Code(s): 082230721 ICD Code: N28.9 - DISORDER OF KIDNEY AND URETER, UNSPECIFIED Status: Acute (6) Breast lump SNOMED Code(s): 09385733 ICD Code: N63 - UNSPECIFIED LUMP IN BREAST Status: Acute Priority: Medium (7) COPD, Moderate chronic obstructive pulmonary disease SNOMED Code(s): 211392298 ICD Code: J44.9 - CHRONIC OBSTRUCTIVE PULMONARY DISEASE, UNSPECIFIED Status : Acute Priority: Medium - Patient Summary/Data Consults: Consultations 10/25/16 07:35 Consult to Case Management [CONS] Routine Consult to Wealth Management Advisor [CONS] Routine Consult to Spiritual Care [CONS] Routine OT Evaluation and Treatment [CONS] Routine PT Evaluation and Treatment [CONS] Routine Respiratory Care Assess and Treatment [CONS] Routine - Patient Instructions Diet: Usual Diet as Tolerated Activity: As Tolerated Driving: Do Not Drive Showering/Bathing: May Shower Notify Provider of: Fever, Increased Pain, Nausea and/or Vomiting - Discharge Plan Prescriptions/Med Rec: Cefuroxime [Ceftin] 500 mg PO BID #10 tablet Home Medications: Home Meds Aspirin [Adult Low Dose Aspirin EC] 81 mg PO Q48H 06/26/13 [History] Docusate Sodium [Colace] 100 mg PO BID 06/26/13 [History] Furosemide [Lasix] 40 mg PO DAILY 06/26/13 [History] Levothyroxine Sodium [Synthroid] 25 mcg PO DAILY 06/26/13 [History] Lisinopril [Zestril] 5 mg PO DAILY 06/26/13 [History] Montelukast [Singulair] 10 mg PO BEDTIME 06/26/13 [History] Potassium Chloride 10 meq PO DAILY 06/26/13 [History] Simvastatin [Zocor] 20 mg PO BEDTIME 06/26/13 [History] SitaGLIPtin [Januvia] 100 mg PO DAILY 06/26/13 [History] Tiotropium [Spiriva Handihaler] 2 puff INH DAILY 06/26/13 [History] metFORMIN [Glucophage] 500 mg PO BIDM 06/26/13 [History] [place]-3/DHA/Epa/Fish Oil [[place]-3 Fish Oil 1,000 MG Sfgl] 1,000 mg PO BID #30 [Rx] Roflumilast [Daliresp] 250 mcg PO ASDIRECTED #30 07/03/13 [Rx] Carvedilol [Coreg] 6.25 mg PO BID #2 tablet 08/19/13 [Rx] guaiFENesin [Mucinex] 600 mg PO DAILY 10/24/16 [History] Albuterol [IJD: Ventolin HFA] 2 puff INH Q4HR PRN 10/25/16 [History] Diltiazem [Cardizem CD] 240 mg PO DAILY 10/26/16 [History] Emollient Base [Emollient] 1 applic TOP ASDIRECTED PRN 10/26/16 [History] Insulin Glarg,Human.Rec.Analog [LantUS Solostar] 12 units SUBCUT BEDTIME [History] Ipratropium [Atrovent 0.06% Nasal [place]] 2 spray INH BID PRN 10/26/16 [History] Cefuroxime [Ceftin] 500 mg PO BID #10 tablet 10/28/16 [Rx] Patient Handouts: Chronic Obstructive Pulmonary Disease Exacerbation, Easy-to- Read, Diabetes and Foot Care, Urinary Tract Infection, Adult, [id number], Oxygen Use at Home, Urinary Frequency, Adult, Chronic Kidney Disease Forms: ED Department Discharge Referrals: Arturo Vance MD [Primary Care Provider] - Dav Monteiro DPM [Resident] - (Patient will call to schedule her own appointment after discharged for foot & nail care) - Discharge Summary/Plan Comment DC Time >30 min.: No - General Info Date of Service: 10/25/16 Functional Status: Reports: Pain Controlled, Tolerating Diet - Review of Systems General: Reports: No Symptoms HEENT: Reports: No Symptoms Pulmonary: Reports: No Symptoms Cardiovascular: Reports: No Symptoms Gastrointestinal: Reports: No Symptoms Genitourinary: Reports: No Symptoms Musculoskeletal: Reports: No Symptoms Skin: Reports: No Symptoms Neurological: Reports: No Symptoms Psychiatric: Reports: No Symptoms - Patient Data Vitals - Most Recent: Last Vital Signs Temp 36.7 C 10/28/16 02:55 Pulse 76 10/28/16 08:30 Resp 18 10/28/16 02:55 BP 117/73 10/28/16 08:30 Pulse Ox 94 L 10/28/16 08:44 Weight - Most Recent: 79.742 kg I&O - Last 24 hours: Intake & Output 10/27/16 10/28/16 10/28/16 22:59 06:59 14:59 Intake Total 1080 550 Output Total 1000 1325 Balance 80 -775 Lab Results - Last 24 hrs: Laboratory Results - last 24 hr 10/27/16 10/28/16 10/28/16 Range/Units 20:28 05:40 05:40 WBC 8.97 (3.98-10.04) K/mm3 RBC 3.01 L (3.98-5.22) M/mm3 Hgb 9.3 L (11.2-15.7) gm/L Hct 28.9 L (34.1-44.9) % MCV 96.0 H (79.4-94.8) fl MCH 30.9 (25.6-32.2) pg MCHC 32.2 (32.2-35.5) g/dl RDW Std Deviation 47.7 H (36.4-46.3) fL Plt Count 214 (182-369) K/mm3 MPV 10.3 (9.4-12.3) fl Neut % (Auto) 75.8 H (34.0-71.1) % Lymph % (Auto) 14.6 L (19.3-51.7) % [place] % (Auto) 5.9 (4.7-12.5) % Eos % (Auto) 3.2 (0.7-5.8) Baso % (Auto) 0.2 (0.1-1.2) % Neut # (Auto) 6.79 H (1.56-6.13) K/mm3 Lymph # (Auto) 1.31 (1.18-3.74) K/mm3 [place] # (Auto) 0.53 H (0.24-0.36) K/mm3 Eos # (Auto) 0.29 (0.04-0.36) K/mm3 Baso # (Auto) 0.02 (0.01-0.08) K/mm3 Sodium 141 (136-145) mEq/L Potassium 4.3 (3.5-5.1) mEq/L Chloride 104 (98-107) mEq/L Carbon Dioxide 30 (21-32) mEq/L Anion Gap 11.3 (5-15) BUN 38 H (7-18) mg/dL Creatinine 1.1 H (0.55-1.02) mg/dL Est Cr Clr Drug Dosing 43.91 mL/min Estimated GFR (MDRD) 49 (>60) mL/min BUN/Creatinine Ratio 34.5 H (14-18) Glucose 148 H (83-115) mg/dL POC Glucose 219 H (83-110) mg/dL Calcium 9.4 (8.5-10.1) mg/dL Magnesium 2.2 (1.8-2.4) mg/dl C-Reactive Protein 2.9 H* (<1.0) mg/dL 10/28/16 Range/Units 05:54 WBC (3.98-10.04) K/mm3 RBC (3.98-5.22) M/mm3 Hgb (11.2-15.7) gm/L Hct (34.1-44.9) % MCV (79.4-94.8) fl MCH (25.6-32.2) pg MCHC (32.2-35.5) g/dl RDW Std Deviation (36.4-46.3) fL Plt Count (182-369) K/mm3 MPV (9.4-12.3) fl Neut % (Auto) (34.0-71.1) % Lymph % (Auto) (19.3-51.7) % [place] % (Auto) (4.7-12.5) % Eos % (Auto) (0.7-5.8) Baso % (Auto) (0.1-1.2) % Neut # (Auto) (1.56-6.13) K/mm3 Lymph # (Auto) (1.18-3.74) K/mm3 [place] # (Auto) (0.24-0.36) K/mm3 Eos # (Auto) (0.04-0.36) K/mm3 Baso # (Auto) (0.01-0.08) K/mm3 Sodium (136-145) mEq/L Potassium (3.5-5.1) mEq/L Chloride (98-107) mEq/L Carbon Dioxide (21-32) mEq/L Anion Gap (5-15) BUN (7-18) mg/dL Creatinine (0.55-1.02) mg/dL Est Cr Clr Drug Dosing mL/min Estimated GFR (MDRD) (>60) mL/min BUN/Creatinine Ratio (14-18) Glucose (83-115) mg/dL POC Glucose 146 H (83-110) mg/dL Calcium (8.5-10.1) mg/dL Magnesium (1.8-2.4) mg/dl C-Reactive Protein (<1.0) mg/dL Med Orders - Current: Current Medications Acetaminophen (Tylenol) 650 mg PO Q4H PRN PRN Reason: Pain (Mild 1-3)/fever Albuterol/Ipratropium (Duoneb 3.0-0.5 Mg/3 Ml) 3 ml NEB Q4HRRT PRN PRN Reason: Shortness of Breath Aspirin (Halfprin) 81 mg PO Q48H [facility] Last Admin: 10/28/16 08:30 Dose: 81 mg Carvedilol (Coreg) 6.25 mg PO BID [facility] Last Admin: 10/28/16 08:30 Dose: 6.25 mg Dextrose/Water (Dextrose 50% In Water) 50 ml IVPUSH ASDIRECTED PRN PRN Reason: Hypoglycemia Diltiazem HCl (Dilacor Xr) 240 mg PO DAILY [facility] Last Admin: 10/28/16 08:30 Dose: 240 mg Docusate Sodium (Colace) 100 mg PO BID [facility] Last Admin: 10/28/16 08:30 Dose: 100 mg Fish Oil (Fish Oil) 1 gm PO BID [facility] Last Admin: 10/28/16 08:30 Dose: 1 gm Furosemide (Lasix) 20 mg PO 1400 [facility] Last Admin: 10/27/16 14:10 Dose: 20 mg Guaifenesin (Mucinex) 600 mg PO DAILY [facility] Last Admin: 10/28/16 08:29 Dose: 600 mg Hydralazine HCl (Apresoline) 20 mg IVPUSH Q4H PRN PRN Reason: Hypertension Ceftriaxone Sodium 1 gm/ (Sodium Chloride) 100 mls @ 200 mls/hr IV Q24H [facility] Last Admin: 10/28/16 02:03 Dose: 200 mls/hr Insulin Aspart (Novolog) 0 unit SUBCUT BID@0700,2100 [facility] PRN Reason: Protocol Last Admin: 10/28/16 06:44 Dose: Not Given Insulin Detemir (Levemir) 6 unit SUBCUT BID [facility] Last Admin: 10/28/16 08:26 Dose: 6 units Ipratropium [place] (Atrovent 0.06% Nasal [place]) 0 ml NASBOTH BID PRN PRN Reason: nasal drainage Lisinopril (Prinivil) 10 mg PO DAILY [facility] Last Admin: 10/28/16 08:30 Dose: 10 mg Metformin HCl (Glucophage) 250 mg PO BIDM [facility] Last Admin: 10/28/16 06:43 Dose: 250 mg Metoprolol Tartrate (Lopressor) 5 mg IVPUSH Q4H PRN PRN Reason: Tachycardia Montelukast Sodium (Singulair) 10 mg PO BEDTIME [facility] Last Admin: 10/27/16 20:17 Dose: 10 mg Multivitamins (Thera) 1 each PO DAILY [facility] Last Admin: 10/28/16 08:30 Dose: 1 each Ondansetron HCl (Zofran) 4 mg IV Q6H PRN PRN Reason: Nausea/Vomiting Roflumilast 250 Mcg 0 each PO Q48H [facility] Last Admin: 10/28/16 10:34 Dose: Not Given Albuterol 6.7 Gm (Inhaler (Ventolin)) 0 each INH BID [facility] Last Admin: 10/28/16 08:44 Dose: 2 each Albuterol 6.7 Gm (Inhaler (Ventolin)) 0 each INH Q4H PRN PRN Reason: Shortness of Breath Levothyroxine 25 Mcg Tab (Synthroid Brand) 0 each PO ACBREAKFAST [facility] Last Admin: 10/28/16 06:44 Dose: 1 each Polyethylene Glycol (Miralax) 17 gm PO DAILY PRN PRN Reason: Constipation Potassium Chloride (Klor-Con 10) 10 meq PO DAILY [facility] Last Admin: 10/28/16 08:30 Dose: 10 meq Saxagliptin Hydrochloride (Onglyza) 5 mg PO DAILY [facility] Simvastatin (Zocor) 20 mg PO BEDTIME [facility] Last Admin: 10/27/16 20:17 Dose: 20 mg Temazepam (Restoril) 7.5 mg PO BEDTIME PRN PRN Reason: Sleep Tiotropium [place] (Spiriva Handihaler) 18 mcg INH DAILY [facility] Last Admin: 10/28/16 08:43 Dose: 1 cap Discontinued Medications Acetaminophen (Tylenol) 650 mg PO Q6H PRN PRN Reason: Fever Hydrocodone Bitart/Acetaminophen ([place] 325-5 Mg) 1 tab PO Q4H PRN PRN Reason: Pain (moderate 4-6) Albuterol (Proventil Hfa) 0 gm INH Q4H PRN PRN Reason: Shortness of Breath Albuterol (Proventil Hfa) 0 gm INH BID [facility] Albuterol (Proventil Hfa) 0 gm INH BID [facility] Bisacodyl (Dulcolax) 5 mg PO DAILY PRN PRN Reason: Constipation Docusate Sodium (Colace) 100 mg PO BID PRN PRN Reason: Constipation Docusate Sodium (Colace) 200 mg PO BID [facility] Last Admin: 10/26/16 09:29 Dose: 200 mg Furosemide (Lasix) 40 mg PO DAILY@0600 [facility] Last Admin: 10/25/16 09:07 Dose: 40 mg Furosemide (Lasix) 20 mg PO DAILY@1400 [facility] Sodium Chloride (Normal Saline) 500 mls @ 999 mls/hr IV .BOLUS ONE Stop: 10/25/16 00:53 Last Admin: 10/25/16 00:41 Dose: 999 mls/hr Ceftriaxone Sodium 1 gm/ (Sodium Chloride) 100 mls @ 200 mls/hr IV ONETIME ONE Stop: 10/25/16 02:48 Last Admin: 10/25/16 02:41 Dose: 200 mls/hr Sodium Chloride (Normal Saline) 1,000 mls @ 100 mls/hr IV ASDIRECTED [facility] Last Admin: 10/25/16 18:06 Dose: 100 mls/hr Promethazine HCl 12.5 mg/ (Sodium Chloride) 50.5 mls @ 100 mls/hr IV Q6H PRN PRN Reason: Nausea/Vomiting Insulin Aspart (Novolog) 0 unit SUBCUT QIDACANDBED [facility] PRN Reason: Protocol Levothyroxine Sodium (Levothyroxine) 25 mcg PO ACBREAKFAST [facility] Lorazepam (Ativan) 1 mg IV Q6H PRN PRN Reason: Anxiety Magnesium Hydroxide (Milk Of Magnesia) 30 ml PO ONETIME ONE Stop: 10/27/16 13:16 Last Admin: 10/27/16 14:10 Dose: 30 ml Magnesium Sulfate (Pharmacy To Dose - Magnesium Replacement) 0 dose .XX ASDIRECTED PRN PRN Reason: RX TO WATCH MAG LEVELS Mometasone Furoate/Formoterol Fumar (Dulera 200-5 Mcg) 2 puff IH BID [facility] Last Admin: 10/25/16 09:08 Dose: Not Given Morphine Sulfate (Morphine) 1 mg IVPUSH Q4H PRN PRN Reason: Pain (severe 7-10) Stop: 10/26/16 07:33 Oxycodone HCl (Oxycodone) 5 mg PO Q6H PRN PRN Reason: PAIN Oxycodone/Acetaminophen (Percocet 325-5 Mg) 1 tab PO Q6H PRN PRN Reason: Pain Pneumococcal 13-Valent Conj Vacc (Prevnar 13) 0.5 ml IM .ONCE ONE Stop: 10/25/16 11:41 Polyethylene Glycol (Miralax) 17 gm PO DAILY PRN PRN Reason: Constipation Potassium Chloride (Pharmacy To Dose - Potassium Replacement) 0 dose .XX ASDIRECTED PRN PRN Reason: RX TO WATCH K LEVELS Senna/Docusate Sodium (Senna Plus) 1 tab PO BID PRN PRN Reason: Constipation Last Admin: 10/25/16 18:48 Dose: 1 tab Sitagliptin Phosphate (Januvia) 100 mg PO DAILY [facility] Last Admin: 10/28/16 08:30 Dose: 100 mg - Exam Quality Assessment: Reports: Supplemental Oxygen, DVT Prophylaxis General: Reports: Alert, Oriented, Cooperative, No Acute Distress HEENT: Reports: Pupils Equal, Pupils Reactive, EOMI Neck: Reports: Supple, Trachea Midline Lungs: Reports: Normal Respiratory Effort Cardiovascular: Reports: Regular Rate GI/Abdominal Exam: Normal Bowel Sounds, Soft, Non-Tender, No Distention (Female) Exam: Deferred Rectal (Female) Exam: Deferred Back Exam: Reports: Normal Inspection Extremities: Normal Inspection Skin: Reports: Warm Neurological: Reports: No New Focal Deficit, Normal Speech Psy/Mental Status: Reports: Alert, Normal Affect, Normal Mood *Q Meaningful Use (DIS) - VTE *Q VTE Criteria *Q: - Stroke *Q Stroke Criteria *Q: - AMI *Q AMI Criteria *Q:
[2016-10-28 12:41] VITALS: BP 103/43
[2016-10-29] MEDS ORDERED: Saxagliptin 5 MG Tab PO SCH (09:00)
== END 2016-10-28 13:15 | disposition home or self-care (01) | DRG 689 ==
LOC: JD.ED 22:28 → JD.MS 10-25 02:10
PROVIDERS: ADMIT Internal Medicine; ATTEND Internal Medicine
DX: N28.9 Disorder of kidney and ureter, unspecified (principal); N39.0 Urinary tract infection, site not specified; J96.90 Respiratory failure, unspecified, unspecified whether with hypoxia or hypercapnia; R31.9 Hematuria, unspecified; N17.9 Acute kidney failure, unspecified; B96.20 Unspecified Escherichia coli [E. coli] as the cause of diseases classified elsewhere; E11.9 Type 2 diabetes mellitus without complications; E86.0 Dehydration; I12.9 Hypertensive chronic kidney disease with stage 1 through stage 4 chronic kidney disease, or unspecified chronic kidney disease; E11.22 Type 2 diabetes mellitus with diabetic chronic kidney disease; N18.3 Chronic kidney disease, stage 3 (moderate); I48.0 Paroxysmal atrial fibrillation; Z79.4 Long term (current) use of insulin; J44.9 Chronic obstructive pulmonary disease, unspecified; R00.0 Tachycardia, unspecified; E03.9 Hypothyroidism, unspecified; I73.9 Peripheral vascular disease, unspecified; H54.7 Unspecified visual loss; N63 Unspecified lump in breast; Z87.891 Personal history of nicotine dependence; Z88.8 Allergy status to other drugs, medicaments and biological substances; Z88.1 Allergy status to other antibiotic agents; Z91.040 Latex allergy status; Z79.82 Long term (current) use of aspirin; Z79.899 Other long term (current) drug therapy; Z66 Do not resuscitate; Z99.81 Dependence on supplemental oxygen
CPT/HCPCS: 51798; 96360; 99285; J7040; 36415; 80048; 80053; 81001; 82962; 83735; 85025; 86140; 87086; 87088; 87186; 93005; 94640; 94640-76; 94664; 94760; 94762; 97161-GP; 97165-GO; A9270; A9270-GY; J0696; J1815-GY; J7030